=== PATIENT | male | born 1950 | race Caucasian/White ===

== ENCOUNTER → 2016-11-06 | Outpatient (CLI) | payer MEDICARE, OTHER | LOC: LAB.O 11:55 | PROVIDERS: ATTEND Internal Medicine Nephrology | DX: N18.4 Chronic kidney disease, stage 4 (severe) (principal) ==

== ENCOUNTER → 2017-06-21 | Outpatient (CLI) | payer MEDICARE, OTHER | END | disposition home or self-care (01) | LOC: LAB.O 11:08 | PROVIDERS: ATTEND Internal Medicine Nephrology | DX: N18.4 Chronic kidney disease, stage 4 (severe) (principal) ==

== ENCOUNTER → 2017-09-28 | Outpatient (CLI) | payer MEDICARE, OTHER | LOC: GMAB 10:40 | PROVIDERS: ATTEND Family Medicine | DX: R53.82 Chronic fatigue, unspecified (principal); Z12.5 Encounter for screening for malignant neoplasm of prostate | CPT/HCPCS: 84403; G0103 ==

== ENCOUNTER → 2018-08-06 | Outpatient (CLI) | payer MEDICARE, OTHER | LOC: LAB.O 12:53 | PROVIDERS: ATTEND Internal Medicine Nephrology | DX: N18.4 Chronic kidney disease, stage 4 (severe) (principal) ==

== ENCOUNTER → 2018-11-18 | Outpatient (CLI) | payer MEDICARE, OTHER | LOC: GMAE 10:26 | PROVIDERS: ATTEND Family Medicine | DX: I10 Essential (primary) hypertension (principal); Z12.5 Encounter for screening for malignant neoplasm of prostate | CPT/HCPCS: 84443; G0103 ==

== ENCOUNTER → 2018-12-26 | Outpatient (CLI) | payer MEDICARE, OTHER ==
--- NOTE | 2018-12-26 14:54 | US ---
EXAM DESCRIPTION: Aorta: Ultrasound. CLINICAL HISTORY: ABDOMINAL AORTIC ANEURYSM WITHOUT RUPTURE COMPARISON: No prior imaging of aorta available. TECHNIQUE: Transcutaneous scanning: Two-dimensional and Doppler modes. FINDINGS: Abdominal aorta diameter - Proximal: 3.0 x 2.8 cm. Mid: 2.0 x 2.0 cm. Mid-Distal: 3.1 x 3.1 cm., 4.6 cm length. Distal abdominal aorta 3.9 x 3.5 cm Common Iliac diameter - Right: 9.3 mm. Left: 20 mm. Other: Atherosclerotic calcification and intimal thickening throughout the abdominal aorta.. IMPRESSION: 1. Distal abdominal aorta diameter 3.9 cm. [facility] Best Practice recommendations: Recommend annual follow-up. Reference: J Vasc Surg 2009 Oct;50(4 Suppl):S2-49. 2. Left common iliac diameter 20 mm representing an aneurysm (upper normal limit is 14 mm). Electronically signed by: Brandt Nelson MD 12/26/2018 2:50 PM [facility]
== END ==
LOC: US 09:00
PROVIDERS: ATTEND Family Medicine
DX: I71.4 Abdominal aortic aneurysm, without rupture (principal)

== ENCOUNTER → 2019-02-06 | Outpatient (CLI) | payer MEDICARE, OTHER | LOC: GMAE 10:55 | PROVIDERS: ATTEND Family Medicine | DX: R94.8 Abnormal results of function studies of other organs and systems (principal); E29.1 Testicular hypofunction ==

== ENCOUNTER → 2019-03-25 | Outpatient (CLI) | payer MEDICARE, OTHER ==
--- NOTE | 2019-03-25 15:04 | CT ---
EXAM DESCRIPTION: Lower Extremity CLINICAL HISTORY: OSTEOARTHRITIS RT KNEE COMPARISON: None Available. TECHNIQUE: Extremity CT of the right knee is performed with thin-section axial imaging. MPRs are created and reviewed as well. FINDINGS: Advanced patellofemoral and medial compartment osteoarthritis with joint space narrowing and early marginal osteophyte formation. Lesser joint space narrowing lateral compartment. Lateral subluxation and lateral tilting of the patella with shallow/insufficient trochlear groove. Moderate knee joint effusion No fracture IMPRESSION: Advanced osteoarthritis of the medial and patellofemoral compartments. Lateral tracking of the patella Joint effusion This exam was performed according to our departmental dose-optimization program, which includes automated exposure control, adjustment of the mA and/or kV according to patient size and/or use of iterative reconstruction technique. Electronically signed by: Dat Iglesias MD 03/25/2019 3:02 PM CDT
== END ==
LOC: MRI 09:53 → CT 10:00
PROVIDERS: ATTEND Family Medicine
DX: M17.11 Unilateral primary osteoarthritis, right knee (principal); S83.011A Lateral subluxation of right patella, initial encounter

== ENCOUNTER → 2019-04-21 | Outpatient (CLI) | payer MEDICARE, OTHER ==
--- NOTE | 2019-04-21 08:14 | RAD ---
EXAM DESCRIPTION: Pelvis CLINICAL HISTORY: 68 years Male, M25.561, M25.551 COMPARISON: None. FINDINGS: Bones of the pelvic ring appear intact. Intact hips and proximal femurs. Moderate degenerative changes in the lower L-spine. Surgical clips in the left paraspinous region. Calcified vessels in the pelvis with multiple pelvic calcifications thought to be phleboliths. Bowel gas obscures the renal silhouettes. Pelvic bones are unremarkable except for degenerative changes at pubic symphysis. IMPRESSION: No acute process. Electronically signed by: Carlos Mcdowell MD 04/21/2019 8:12 AM CDT
--- NOTE | 2019-04-21 08:17 | RAD ---
EXAM DESCRIPTION: Knee,Right Complete CLINICAL HISTORY: 68 years, Male, M25.561, M25.551 COMPARISON: None TECHNIQUE: Three views of the right knee FINDINGS: No fracture or dislocation. Bones appear normally mineralized with normal trabecular pattern. Narrowed appearance of medial compartment on the oblique and frontal views with mild medial joint line spurring and mild spurring of the tibial spines. Lateral view shows normal position of the patella. Positive posterior vascular calcification. Minimal posterior patellar spurring with mild degenerative posterior surface irregularity. Positive small suprapatellar knee joint effusion. Normal contour of quadriceps and patellar tendons. No abnormal patellar tilt or subluxation on patellar sunrise view. Posterior patellar surface irregularity with mild marginal spurring. IMPRESSION: Degenerative changes as described. Electronically signed by: Carlos Mcdowell MD 04/21/2019 8:15 AM CDT
== END ==
LOC: RAD 07:41
PROVIDERS: ATTEND Orthopaedic Surgery
DX: M17.11 Unilateral primary osteoarthritis, right knee (principal); M25.551 Pain in right hip

== ENCOUNTER → 2019-08-25 | Outpatient (CLI) | payer MEDICARE, OTHER | LOC: LAB.O 11:23 | PROVIDERS: ATTEND Orthopaedic Surgery | DX: Z01.818 Encounter for other preprocedural examination (principal) ==

== ENCOUNTER 2019-10-07 06:10 | Inpatient (IN) | payer MEDICARE, OTHER ==
[~2019-10-07 06:10] MED LIST: LACTATED RINGERS 1,000 ML ONE; SODIUM CHL 0.9% 100ML MINI-BAG 100 ML IVPB ONE; SODIUM CHLORIDE 0.9% 100ML 100 ML IVPB ONE; SODIUM CHLORIDE 0.9% 250ML 250 ML ONE; TRANEXAMIC ACID 1,000 MG/10 ML VIAL ONE; VANCOMYCIN HCL INJ 1,000 MG VIAL IVPB ONE; ceFAZolin SODIUM 1 GM VIAL ONE
[2019-10-07] MEDS ORDERED: MIDAZOLAM INJ 5 MG/5 ML VIAL ONE (06:32)
[2019-10-07] MEDS ORDERED: HYDROmorphone HCL INJ 2 MG/ML VIAL ONE (06:32)
[2019-10-07] MEDS ORDERED: BUPIVACAINE 0.5% 30 ML VIAL INJ ONE ×2 (06:34→06:53)
[2019-10-07] MEDS ORDERED: VANCOMYCIN HCL INJ 1,000 MG VIAL IVPB ONE ×5 (06:34→19:38)
[2019-10-07] MEDS ORDERED: ceFAZolin SODIUM 1 GM VIAL ONE ×3 (06:34→19:38)
[2019-10-07] MEDS ORDERED: BUPIVACAINE LIPOSOME 13.3 MG/ML VIAL INJ ONE ×3 (06:34→06:53)
[2019-10-07] MEDS ORDERED: ceFAZolin SODIUM 1 GM VIAL IRRIG ONE ×2 (06:53→08:40)
[2019-10-07] MEDS ORDERED: PROMETHAZINE HCL INJ 25 MG in SODIUM CHLORIDE 0.9% 50ML 50 ML IVPB PRN (09:18)
[2019-10-07] MEDS ORDERED: NALOXONE HCL INJ 0.4 MG/ML VIAL IV PRN (09:18)
[2019-10-07] MEDS ORDERED: BENZOCAINE-MENTH LOZ (CEPACOL) 1 EA LOZ MT PRN (09:18)
[2019-10-07] MEDS ORDERED: BISACODYL SUPPOSITORY 10 MG PR PRN (09:18)
[2019-10-07] MEDS ORDERED: MORPHINE SULFATE INJ 10 MG/ML VIAL IM PRN (09:18)
[2019-10-07] MEDS ORDERED: HYDROcodone 5MG/APAP 325MG 1 EA TAB PO PRN (09:18)
[2019-10-07] MEDS ORDERED: ACETAMINOPHEN 500 MG TAB PO PRN (09:18)
[2019-10-07] MEDS ORDERED: ACETAMINOPHEN 325 MG TAB PO PRN (09:18)
[2019-10-07] MEDS ORDERED: MAGNESIUM HYDROXIDE 30 ML UD PO PRN (09:18)
[2019-10-07] MEDS ORDERED: TRANEXAMIC ACID INJ 1,000 MG in SODIUM CHLORIDE 0.9% 100ML 100 ML IVPB ONE (09:18)
[2019-10-07] MEDS ORDERED: MORPHINE SULFATE INJ 10 MG/ML VIAL IV PRN (09:18)
[2019-10-07] MEDS ORDERED: ZOLPIDEM TARTRATE 5 MG TAB PO PRN (09:18)
[2019-10-07] MEDS ORDERED: ALUMINUM & MAGNESIUM HYDROXIDE 30 ML UD PO PRN (09:18)
[2019-10-07] MEDS ORDERED: TEMAZEPAM 15 MG CAP PO PRN (09:18)
[2019-10-07] MEDS ORDERED: SODIUM CHLORIDE 0.9% (FLUSH) 10 ML SYG IV PRN (09:18)
[2019-10-07] MEDS ORDERED: PROMETHAZINE HCL INJ 12.5 MG in SODIUM CHLORIDE 0.9% 50ML 50 ML IVPB PRN (09:18)
[2019-10-07] MEDS ORDERED: IV SET AND CAP CHANGE INJ INJ SCH (09:30)
[2019-10-07] MEDS ORDERED: MORPHINE PCA 1 MG/ML 100 ML BAG IVPB SCH (09:30)
[2019-10-07] MEDS ORDERED: LACTATED RINGERS 1,000 ML ONE (10:04)
--- NOTE | 2019-10-07 10:42 | OP ---
DATE OF PROCEDURE: 10/07/19 PREOPERATIVE DIAGNOSIS: 1. Right knee osteoarthritis. POSTOPERATIVE DIAGNOSIS: 1. Right knee osteoarthritis. PROCEDURE: 1. Total knee arthroplasty. SURGEON: Shorty Ho MD. RESEARCH LAB ASSISTANT: Brandt Amado CST, SA-C. ANESTHESIA: General anesthesia. COMPLICATIONS: None. FINDINGS: Severe osteoarthritis. INDICATION: Mr. Souza has a history of severe pain for which he has been undergoing treatment. Unfortunately, Mr. Souza's pain has been refractory to conservative measures. Because of the refractory nature of his pain, he has become limited and has requested knee replacement. After discussing the risks, benefits and alternatives to that, the patient has given informed consent for that. PROCEDURE: The patient was brought to the Operating Room and placed in supine position. General anesthesia was induced and the patient's leg was sterilely prepped and draped. Following prepping and draping, the distal femur was exposed and using an intramedullary guide, the distal femoral cut was made. The appropriate sized cutting block was measured, pinned into place, and the anterior, posterior, and chamfer cuts were made. The ACL was transected and the tibia was subluxed. Both the medial and lateral menisci were removed. An intramedullary guide was used to make the proximal tibial cut. The appropriate sized base plate was placed and a trial polyethylene was placed. The trial femur was placed, the knee was reduced, and the knee was taken through a range of motion. The knee was stable in anterior, posterior, varus and valgus stress. The patella tracked anatomically without evidence of subluxation or dislocation. After trialing, the trial components were removed and the bony surfaces were thoroughly irrigated with saline. Following irrigation, the surfaces were dried and the final components were cemented into place. The excess cement was removed and the remaining cement was allowed to cure. The knee was again taken through a range of motion to confirm stability. The wound was then irrigated with saline and closure was performed using PDS to approximate the arthrotomy followed by closure of the subcutaneous tissues with a combination of running and interrupted Monocryl sutures. Sterile dressing was placed. The patient was awoken from anesthesia and taken to Recovery. COMPONENTS: [place] Triathlon knee, size 5 femur, size 5 tibia, 9 mm insert. POSTOPERATIVE PLAN: The patient will be weight-bearing as tolerated on postoperative day 1. #[id number] [facility]
--- NOTE | 2019-10-07 11:06 | RAD ---
EXAM DESCRIPTION: Knee,Right 1 or 2 Views CLINICAL HISTORY: 69 years Male, TKA COMPARISON: None. Findings: Location: Right knee Recent right total knee arthroplasty. No evidence of hardware complication. No acute fracture or dislocation. Expected postsurgical appearance of the overlying soft tissues. IMPRESSION: Recent right total knee arthroplasty. No evidence of hardware complication. Electronically signed by: Sandro Pitts MD 10/07/2019 11:04 AM [facility]
[2019-10-07] MEDS: ONDANSETRON INJ 4 MG/2 ML VIAL IV PRN (12:05)
[2019-10-07] MEDS: DEX 5% W/NACL 0.45% 1000ML 1,000 ML IVS PRN (12:08)
[2019-10-07] MEDS ORDERED: EPINEPHrine HCL AMP 1 MG/ML AMP IVPB ONE (13:00)
[2019-10-07] MEDS ORDERED: ePHEDrine SULF 50 MG/ML IV ONE (13:00)
[2019-10-07] MEDS ORDERED: raNITIdine HCL INJ 25 MG/ML VIAL IV ONE (13:00)
[2019-10-07] MEDS ORDERED: MAGNESIUM SULFATE INJ 1 GM/2 ML VIAL IVPB ONE (13:00)
[2019-10-07] MEDS ORDERED: DEXAMETHASONE INJ 10 MG/ML VIAL IV ONE (13:00)
[2019-10-07] MEDS ORDERED: SODIUM CHLORIDE 0.9% 50 ML VIAL INJ ONE (13:00)
[2019-10-07] MEDS ORDERED: PROPOFOL 200 MG/20 ML VIAL IV ONE (13:00)
--- NOTE | 2019-10-07 13:30 | RAD ---
EXAM DESCRIPTION: Fluoroscopy Up to 1Hr CLINICAL HISTORY: 69 years Male, TKA RIGH COMPARISON: None. Findings: Location: Right knee Recent right total knee arthroplasty. No evidence of hardware complication. No acute fracture or dislocation. Expected postsurgical appearance of the overlying soft tissues. Dose: 0.25 mGy Fluoroscopy time: 3.3 seconds IMPRESSION: Recent right total knee arthroplasty. No evidence of hardware complication. Electronically signed by: Sandro Pitts MD 10/07/2019 1:28 PM [facility]
[2019-10-07] MEDS ORDERED: SODIUM CHLORIDE 0.9% 100ML 100 ML IVPB ONE ×2 (15:48→19:38)
[2019-10-07] MEDS: ceFAZolin SODIUM 2 GM in SODIUM CHLORIDE 0.9% 100ML 100 ML IVPB SCH (15:53)
[2019-10-07] MEDS ORDERED: SODIUM CHLORIDE 0.9% 250ML 250 ML ONE ×2 (16:33→19:37)
[2019-10-07] MEDS: CELECOXIB 100 MG CAP PO SCH (17:46)
[2019-10-07] MEDS ORDERED: PROMETHAZINE HCL INJ 25 MG/ML VIAL ONE (17:47)
[2019-10-07] MEDS ORDERED: SODIUM CHLORIDE 0.9% 50ML 50 ML ONE (17:48)
[2019-10-07] MEDS: VANCOMYCIN HCL INJ 1,000 MG in SODIUM CHLORIDE 0.9% 250ML 250 ML IVPB SCH (17:50)
[2019-10-07] MEDS ORDERED: ENOXAPARIN SODIUM 30 MG/0.3 ML SYG SUBCU ONE (19:37)
[2019-10-07] MEDS: DOCUSATE CALCIUM 240 MG CAP PO SCH (20:18)
[2019-10-07] MEDS: ENOXAPARIN SODIUM 30 MG/0.3 ML SYG SUBCU SCH (23:29)
[2019-10-08] MEDS: VANCOMYCIN HCL INJ 1,000 MG in SODIUM CHLORIDE 0.9% 250ML 250 ML IVPB SCH (06:13)
[2019-10-08] MEDS: CELECOXIB 100 MG CAP PO SCH ×2 (07:46→16:33)
[2019-10-08] MEDS: CYCLOBENZAPRINE HCL 10 MG TAB PO PRN ×2 (07:46→19:44)
[2019-10-08] MEDS: ONDANSETRON INJ 4 MG/2 ML VIAL IV PRN ×2 (07:46→11:50)
[2019-10-08] MEDS ORDERED: SODIUM CHLORIDE 0.9% 100ML 100 ML IVPB ONE (08:06)
[2019-10-08] MEDS ORDERED: ceFAZolin SODIUM 1 GM VIAL ONE (08:06)
[2019-10-08] MEDS: MAGNESIUM OXIDE 400 MG TAB PO SCH (08:30)
[2019-10-08] MEDS: ceFAZolin SODIUM 2 GM in SODIUM CHLORIDE 0.9% 100ML 100 ML IVPB SCH ×3 (08:31)
--- NOTE | 2019-10-08 09:38 | CONS ---
REASON FOR CONSULTATION: Medical management, total right knee arthroplasty. SUPERVISING PHYSICIAN: GISELA TREJO MD HISTORY OF PRESENT ILLNESS: Mr. 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 He has had multiple attempts as an outpatient with conservative treatment measures with Dr. Ho but failed to receive any significant symptom relief and has requested an elective total knee replacement. He will be admitted for an elective total right knee arthroplasty. He had no intraoperative complications and is in stable condition. PAST MEDICAL HISTORY: 1. History of tension headaches. 2. Hyperlipidemia. 3. Hypertension. 4. Coronary artery disease with previous stent placement. 5. Abdominal aortic aneurysm measuring 3.9 cm in December [address] Trejo. 6. Left common iliac aneurysm, again measuring [address] Trejo. 7. Hepatitis C diagnosed in 2008. 8. Previous cerebrovascular accident in 2010. PAST SURGICAL HISTORY: 1. Cholecystectomy. 2. Sinus surgery. 3. Coronary artery bypass graft x4 vessels in 2008. 4 Coronary artery stent placement in 2001. 5. Bilateral hernia repair. 6. Pacemaker implantation in 2008. HOME MEDICATIONS: 1. Metoprolol 25 mg daily. 2. Losartan 100 mg daily. 3. Gabapentin 600 mg b.i.d. 4. Lasix 20 mg daily. 5. Plavix 75 mg daily. 6. Lipitor 20 mg daily. 7. Aspirin 81 mg daily. 8. Amlodipine 10 mg daily. 9. Allopurinol 300 mg daily. ALLERGIES: NO KNOWN DRUG ALLERGIES. FAMILY HISTORY: Father at age 85 due to kidney problems. Mother had history of Alzheimer's disease. 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 He is . He lives in [place]. He has a history of cigarette smoking but quit in 2007, approximately had half case per week and does not drink or use illicit drugs. REVIEW OF SYSTEMS: CONSTITUTIONAL: Negative for chills, fever, general malaise. HEENT: Negative for headaches, vision changes, sore throats, nasal congestion, earaches. RESPIRATORY: Denies shortness of breath, coughing, wheezing. CARDIOVASCULAR: Denies any palpitations, syncopal episodes, chest pain. ABDOMEN: Denies nausea, vomiting, diarrhea, constipation or any other abdominal pain. GENITOURINARY: Denies dysuria, hematuria, polyuria. MUSCULOSKELETAL: As noted in history of present illness. SKIN: Denies any lesions, rashes, moles. HEMATOLOGIC: Denies any easy bruising, bleeding or transfusion reaction. PHYSICAL EXAMINATION: VITAL SIGNS: Temperature 97.2, pulse 58, blood pressure 136/79, respirations 18, oxygen saturation 97% on 2 liter nasal cannula. GENERAL: The patient is resting comfortably, appears to be in no acute distress. He is alert. HEENT: Tympanic membranes clear bilaterally. Oropharynx is pink, moist without any lesions. NECK: Supple, nontender with full range of motion. No jugular venous distention noted. CHEST: Clear to auscultation bilaterally without rhonchi, rales, or wheezes. CARDIOVASCULAR: Regular rate and rhythm without any appreciable murmurs, gallops, or rubs. ABDOMEN: Soft, nontender. Positive bowel sounds. EXTREMITIES: There is no cyanosis, clubbing or edema. NEUROLOGIC: The patient is alert and oriented times three. Cranial nerves II- XII are grossly intact. Facial features are symmetrical. Extraocular movements are within normal limits. MUSCULOSKELETAL: Again, no cyanosis, clubbing, or edema but distally pulses are strong on the right with capillary refill brisk and right knee had a bulky dressing placed. Postoperative labs are pending. ASSESSMENT: 1. Severe osteoarthritis of right knee requiring total knee arthroplasty for symptom control, postoperative day #0, performed by Dr. Shorty Ho. 2. History of tension headaches. 3. Hypertension. 4. Coronary artery disease with 3 stent placements. 5. Previous cerebrovascular accident in 2010. 6. Hepatitis C. 7. History of left common iliac aneurysm followed by Dr. Trejo. 8. Abdominal aortic aneurysm 3.9 cm in December [address] Trejo. PLAN: We will follow patient as he continues with his rehabilitation and physical therapy efforts. I did discuss with him his plans for discharge. He is interested in trying to do [facility] because he has been to [facility] at some point in the past. We will resume his home medications as soon as those are updated and verified. We will defer further surgical management to Dr. Ho. He will be on DVT prophylaxis per protocol. Until we can transition him to outpatient management, we will continue to monitor and treat as needed. #[id number] [facility]
[2019-10-08] MEDS: ENOXAPARIN SODIUM 30 MG/0.3 ML SYG SUBCU SCH ×2 (10:57→22:33)
[2019-10-08] MEDS: traMADol HCL 50 MG TAB PO PRN ×2 (11:54→16:32)
[2019-10-08] MEDS: HYDROcodone 10MG/APAP 325MG 1 EA TAB PO PRN ×2 (13:54→19:44)
[2019-10-08] MEDS: DEX 5% W/NACL 0.45% 1000ML 1,000 ML IVS PRN (19:44)
[2019-10-08] MEDS: DOCUSATE CALCIUM 240 MG CAP PO SCH (20:27)
[2019-10-08] MEDS: GABAPENTIN 300 MG CAP PO SCH (20:27)
[2019-10-09] MEDS: HYDROcodone 10MG/APAP 325MG 1 EA TAB PO PRN ×2 (05:03→17:55)
[2019-10-09] MEDS ORDERED: LOSARTAN POTASSIUM 100 MG TAB ONE (07:01)
[2019-10-09] MEDS ORDERED: ASPIRIN (ENTERIC COATED) 81 MG TAB PO ONE (07:02)
[2019-10-09] MEDS: traMADol HCL 50 MG TAB PO PRN (07:10)
[2019-10-09] MEDS: CELECOXIB 100 MG CAP PO SCH ×2 (07:10→17:56)
[2019-10-09] MEDS: CYCLOBENZAPRINE HCL 10 MG TAB PO PRN (07:10)
[2019-10-09] MEDS: ONDANSETRON INJ 4 MG/2 ML VIAL IV PRN ×2 (07:39→11:04)
--- NOTE | 2019-10-09 07:53 | PN ---
SUPERVISING PHYSICIAN: Elijah Matthews MD DATE: 10/08/19 SUBJECTIVE: The patient is lying in bed asleep. He awakens easily. He complains of pain, but it is expected pain although he feels like some of his medications could be corrected to help with the pain. I have discussed options and will order accordingly. Otherwise, he denies shortness of breath, chest pain, nausea, vomiting and diarrhea. OBJECTIVE: VITAL SIGNS: Temperature 97.5. Heart rate 82. Blood pressure 145/81. Respiratory rate 15. O2 saturation 95% on room air. RESPIRATORY: Essentially clear to auscultation bilaterally. CARDIAC: Regular rate and rhythm. GASTROINTESTINAL: Abdomen is soft, nondistended, nontender. Bowel sounds are positive. EXTREMITIES: There is a dressing to his right knee that is dry and intact. Bilateral pedal pulses are palpable at +2. NEUROLOGIC: Awake, alert and oriented times three. LABORATORY: His followup hemoglobin is 11.9 and hematocrit 36.1. All other labs and films have been reviewed via the EMR. ASSESSMENT: 1. Severe osteoarthritis of right knee requiring total knee arthroplasty for symptom control, performed by Dr. Shorty Ho, orthopedic surgeon, postoperative day #1. 2. History of tension headaches. 3. Hypertension. 4. Coronary artery disease with 3 stents. 5. Previous cerebrovascular accident in 2010. 6. Hepatitis C. 7. History of left common iliac aneurysm followed by Dr. Matthews. 8. Abdominal aortic aneurysm, 3.9 cm in December 2018, followed by Dr. Matthews. PLAN: We will continue present supportive care including his physical therapy for strengthening and conditioning. Orthopedic issues will be per Dr. Shorty Ho, orthopedic surgeon. I have adjusted some of his pain medications. Hopefully that will facilitate his pain control. It is anticipated that discharge will be tomorrow or the next day. He will do outpatient physical therapy at the [facility]. Until then, we will continue to monitor the patient closely and follow as needed. [facility][id number] [facility]
[2019-10-09] MEDS: GABAPENTIN 300 MG CAP PO SCH (08:17)
[2019-10-09] MEDS: MAGNESIUM OXIDE 400 MG TAB PO SCH (08:18)
[2019-10-09] MEDS ORDERED: ATORVASTATIN 20 MG TAB PO SCH (09:00)
[2019-10-09] MEDS ORDERED: ASPIRIN (CHEWABLE) 81 MG TAB PO SCH (09:00)
[2019-10-09] MEDS ORDERED: METOPROLOL SUCCINATE XL 25 MG TAB PO SCH (09:00)
[2019-10-09] MEDS ORDERED: amLODIPine BESYLATE 5 MG TAB PO SCH (09:00)
[2019-10-09] MEDS ORDERED: ALLOPURINOL 300 MG TAB PO SCH (09:00)
[2019-10-09] MEDS ORDERED: SODIUM CHLORIDE 0.9% (FLUSH) 10 ML SYG IV SCH (09:00)
[2019-10-09] MEDS ORDERED: LOSARTAN POTASSIUM 100 MG TAB PO SCH (09:00)
[2019-10-09] MEDS ORDERED: FUROSEMIDE 40 MG TAB PO SCH (09:00)
[2019-10-09 09:19] VITALS: O2SAT 98
[2019-10-09] MEDS: ENOXAPARIN SODIUM 30 MG/0.3 ML SYG SUBCU SCH (11:04)
[2019-10-09 17:34] VITALS: BP 139/79; TEMP 97.6
--- NOTE | 2019-10-10 11:14 | DS ---
SUPERVISING PHYSICIAN: Elijah Matthews MD DISCHARGE DIAGNOSIS: 1. Severe osteoarthritis of right knee requiring total knee arthroplasty for symptom control, performed by Dr. Shorty Ho, orthopedic surgeon, postoperative day #2. 2. History of tension headaches. 3. Hypertension. 4. Coronary artery disease with 3 stents. 5. Previous cerebrovascular accident in 2010. 6. Hepatitis C. 7. History of left common iliac aneurysm followed by Dr. Matthews. 8. Abdominal aortic aneurysm, 3.9 cm in December 2018, followed by Dr. Matthews. 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 He has had multiple attempts as an outpatient with conservative treatment measures, but failed to gain any significant symptom relief and has requested an elective total knee replacement to be performed by Dr. Shorty Ho, orthopedic surgeon. He was admitted to the hospital on the morning of his surgery. He had no problems intraoperatively and he was admitted to the Medical/Surgical Floor in stable condition. HOSPITAL COURSE: He had no problems postoperatively. He continued with his physical therapy for strengthening and conditioning. He did have some dizziness prior to his discharge, but he felt it was due to pain medications on an empty stomach. This afternoon, he proceed through his physical therapy without any problem and he will be discharged home today in stable condition. LABORATORY: Initial hemoglobin was 13.8 and hematocrit 41.7. The day after his surgery, it was hemoglobin 11.9 and continue the 36.1. His urine drug screen was positive for cannabinoids. X-rays are per the electronic medical record. DISCHARGE PLAN: He will be discharged home in stable condition. He will continue with physical therapy at the [facility]. He is to resume his usual diet and his activity is as per physical therapy. He has an appointment with Dr. Shorty Ho on 10/23/19 at 9:15 AM. In addition to his routine medications, he has hydrocodone, cyclobenzaprine and 10 days of Xarelto. He is to return to the hospital or followup with Dr. Ho for any problems or complications. DISCHARGE MEDICATIONS: 1. Amlodipine. 2. Aspirin. 3. Allopurinol. 4. Losartan. 5. Furosemide. 6. Gabapentin. 7. Plavix. 8. Metoprolol. 9. Atorvastatin. 10. Cyclobenzaprine. 11. Hydrocodone. 12. Xarelto. [facility][id number] [facility]
[2019-10-10] MEDS ORDERED: BISACODYL SUPPOSITORY 10 MG PR ONE (21:00)
[2019-10-10] MEDS ORDERED: MAGNESIUM HYDROXIDE 30 ML UD PO ONE (21:00)
== END 2019-10-09 18:00 | disposition home or self-care (01) | DRG 470 ==
LOC: AMB 06:10 → MS 10:05
PROVIDERS: ADMIT Orthopaedic Surgery; ATTEND Nurse Practitioner Acute Care
PROC: 0SRC0J9 Replacement of Right Knee Joint with Synthetic Substitute, Cemented, Open Approach (ICD-10-PCS; principal; 2019-10-07 06:53)
DX: M17.11 Unilateral primary osteoarthritis, right knee (principal); E78.5 Hyperlipidemia, unspecified; I10 Essential (primary) hypertension; I25.10 Atherosclerotic heart disease of native coronary artery without angina pectoris; I71.4 Abdominal aortic aneurysm, without rupture; B19.20 Unspecified viral hepatitis C without hepatic coma; I72.3 Aneurysm of iliac artery; Z86.73 Personal history of transient ischemic attack (TIA), and cerebral infarction without residual deficits; Z95.1 Presence of aortocoronary bypass graft; Z95.5 Presence of coronary angioplasty implant and graft; Z95.0 Presence of cardiac pacemaker; Z79.02 Long term (current) use of antithrombotics/antiplatelets; Z87.891 Personal history of nicotine dependence; Z79.82 Long term (current) use of aspirin; Z79.899 Other long term (current) drug therapy

== ENCOUNTER 2019-10-12 11:08 | Emergency (ER) | payer MEDICARE, OTHER ==
[2019-10-12] MEDS ORDERED: SODIUM CHLORIDE 0.9% (FLUSH) 10 ML SYG IV PRN (11:17)
--- NOTE | 2019-10-12 11:24 | ED.PDOC ---
History of Present Illness - General Chief Complaint: Neuro Symptoms/Deficits Stated Complaint: Difficulty forming sentences Time Seen by Provider: 10/12/19 11:10 Source: patient, RN notes reviewed, Vital Signs reviewed, old records, other - Son Exam Limitations: no limitations - History of Present Illness Initial Comments: Pt is a 69 yo male with PMH of HTN and recent right knee surgery 1 week ago who presents for exprressive aphasia that is improved. Son states he was with him last night at 1800 and he was speaking normally. He went to see him this morning at 10:45 and noticed he was having trouble speaking and brought him to ED. Patient states he did not notice deficit until he attempted to speak to son this morning and felt he knew what he wanted to say, but could not form the words. Son feels his speech is improved now from earlier this morning. Pt denies DOMINGUEZ, dizziness, CP, SOB. Reports right knee pain which is unchanged from recent surgery. Pt is taking Xarelto, Plavix and aspirin. Allergies/Adverse Reactions: Allergies NO KNOWN ALLERGY Allergy (Unverified 06/25/14 15:21) Home Medications: Ambulatory Orders RX: Allopurinol 300 mg PO DAILY 09/30/19 RX: Amlodipine Besylate 10 mg PO DAILY 09/30/19 RX: Aspirin [Aspirin Childrens] 81 mg PO DAILY 09/30/19 RX: Atorvastatin Calcium [Lipitor] 20 mg PO DAILY 09/30/19 RX: Clopidogrel Bisulfate 75 mg PO DAILY 09/30/19 RX: Furosemide 20 mg PO DAILY 09/30/19 RX: Gabapentin 600 mg PO BID 09/30/19 RX: Losartan Potassium 100 mg PO DAILY 09/30/19 RX: Metoprolol Succinate [Metoprolol Succinate ER] 25 mg PO DAILY 09/30/19 RX: Cyclobenzaprine HCl [Flexeril] 10 mg PO Q8H PRN #30 tab 10/09/19 RX: HYDROcodone 10MG/APAP 325MG [[place] 10/325] 1 ea PO Q4H PRN tab 10/09/19 Rivaroxaban [Xarelto] 10 mg PO DAILY #10 tab 10/09/19 Review of Systems - Review of Systems Constitutional: Denies: chills, fever, weakness EENTM: Denies: blurred vision, double vision Respiratory: Denies: cough, short of breath, wheezing Cardiology: Denies: chest pain, edema, palpitations, syncope Gastrointestinal/Abdominal: Denies: abdominal pain, diarrhea, nausea, vomiting Genitourinary: States: no symptoms reported Musculoskeletal: States: other - right knee pain siince surgery. Denies: back pain, muscle pain Skin: States: no symptoms reported Neurological: States: other - expressive aphasia. Denies: anxiety, headache, paresthesia All other Systems: Reviewed and Negative Past Medical History (General) - Patient Medical History Hx Seizures: No Hx Stroke: Yes - brain stem CVA 2010 Hx Asthma: No Hx of COPD: No Hx Congestive Heart Failure: No Hx Pacemaker: Yes Hx Hypertension: Yes Hx Diabetes: No Hx Renal Disease: Yes - Stage 3 Hx MRSA: No - Vaccination History Hx Influenza Vaccination: Yes - 2012 - Social History Hx Tobacco Use: No Hx Alcohol Use: No Hx Substance Use: No Hx Physical Abuse: No Hx Emotional Abuse: No Family Medical History - Family History Father Hx Cardiac Disease: Yes Hx Family;Other: Hx of kidney failure Physical Exam - Physical Exam General Appearance: Alert, Comfortable, No apparent distress Eye Exam: bilateral normal - PERRL ENT Exam: other - MMM, no oropharyngeal erythema Neck: non-tender, full range of motion, supple, trachea midline Respiratory: chest non-tender, lungs clear, normal breath sounds, no respiratory distress Cardiovascular/Chest: normal peripheral pulses, regular rate, rhythm, no edema, no murmur Gastrointestinal/Abdominal: non tender, soft Extremities Exam: other - Mild TTP right knee Mental Status: alert, oriented x 3, other - CN grossly intact. strength 5/5 in all extremities. speech is clear and fluent. able to name simple objects. NIHSS is 0 Motor/Sensory: no motor deficit, no sensory deficit Skin Exam: normal color, warm/dry Progress - Progress Progress: 10/12/19 11:27 Pt presents with expressive aphasia noticed by son at 10:45 this morning. unknown last well time. Speech has significantly improved per patient and son. Pt nont candidate for tPA due to improvement of symptoms and NIHSS of 0. 10/12/19 13:43 Pt continues to have fluent speech and no neuro deficits. CT head negative. Appears to have had TIA causing expressive aphasia that has resolved. Hgb has dropped from 11.9 on 10/08/19 to 7.5 today. Denies bloody, black or tarry stools. RLE compartments are soft and does not appear to be any source of blood loss. Will get stool guiac. 10/12/19 13:54 Rectal exam chaperoned by DEIDRE Jones. Has no hemorrhoids. There is brown stool that is Guiac negative. 10/12/19 14:00 D/W Davide Floyd, hospitalist. Pt has pacemaker and unable to get MRI. He will check to see if we would be able to get Echo at this facility tomorrow and call back 10/12/19 14:05 Davide Floyd recommends transfer for higher level of care and Neuro workup. 10/12/19 14:15 D/W [facility] Transfer Line and Dr. Castro who accepts transfer. Pt informed of transfer for further TIA, neuro workup and agrees. 10/12/19 14:23 Dr. Ho, Ortho, at bedside. - Results/Orders Results/Orders: CT BRAIN IMPRESSION: 1. Chronic right thalamic lacunar infarct. 2. No other intracranial findings. 3. If further imaging evaluation of expressive aphasia is desired recommend diffusion MRI CXR Technique: Portable AP chest x-ray. Comparison: December 04, 2011. Clinical history: Possible stroke. Heart size: Normal. Left transvenous and epicardial pacemaker. No pulmonary edema Lungs: No acute consolidation. Pleura: No pleural effusion. No pneumothorax. Mediastinum and loida: Unremarkable. Skeletal: Unremarkable. Support tubings: None. Impression: 1. No active disease in the chest. 10/12/19 11:30 EKG STAT Laboratory Results - last 24 hr 10/12/19 10/12/19 10/12/19 12:30 12:31 12:31 WBC 14.5 H RBC 2.38 L Hgb 7.5 L* Hct 22.8 L MCV 95.8 H MCH 31.6 H MCHC 33.0 RDW 14.9 H Plt Count 264 MPV 8.0 Absolute Neuts (auto) 11.90 H Absolute Lymphs (auto) 1.60 Absolute Monos (auto) 1.00 H Absolute Eos (auto) 0.00 Absolute Basos (auto) 0.00 Neutrophils % 82.0 H Lymphocytes % 10.9 L Monocytes % 6.5 Eosinophils % 0.3 L Basophils % 0.3 PT INR PTT (SP) Sodium 139 Potassium 3.4 L Chloride 105 Carbon Dioxide 21 Anion Gap 16.4 BUN 86 H Creatinine 1.78 H BUN/Creatinine Ratio 48.3 H POC Glucose 155 H Random Glucose 137 H Serum Osmolality 305.9 H Calcium 8.6 Total Bilirubin 0.5 AST 42 ALT 25 Alkaline Phosphatase 82 Creatine Kinase 82 CK-MB (CK-2) 3.9 CK-MB (CK-2) % Not Reportable Troponin I 0.04 Serum Total Protein 5.8 L Albumin 3.0 L Globulin 2.8 Albumin/Globulin Ratio 1.1 Stool Occult Blood 10/12/19 10/12/19 12:31 13:45 WBC RBC Hgb Hct MCV MCH MCHC RDW Plt Count MPV Absolute Neuts (auto) Absolute Lymphs (auto) Absolute Monos (auto) Absolute Eos (auto) Absolute Basos (auto) Neutrophils % Lymphocytes % Monocytes % Eosinophils % Basophils % PT 9.5 INR 0.95 PTT (SP) 24.5 Sodium Potassium Chloride Carbon Dioxide Anion Gap BUN Creatinine BUN/Creatinine Ratio POC Glucose Random Glucose Serum Osmolality Calcium Total Bilirubin AST ALT Alkaline Phosphatase Creatine Kinase CK-MB (CK-2) CK-MB (CK-2) % Troponin I Serum Total Protein Albumin Globulin Albumin/Globulin Ratio Stool Occult Blood Negative - EKG/XRAY/CT Comments: Ventricular paced rhythm, rate 95, nonspecific ST abnormality Stroke Information - Onset of Symptoms Symptoms of Stroke: Aphasia - Last known normal was 1800 10/11/19 Departure - Departure Clinical Impression: Expressive aphasia, TIA (transient ischemic attack), Anemia Time of Disposition: 14:18 Disposition: Discharge to Home or Self Care Condition: Fair Departure Forms: ED Discharge - Pt. Copy, Patient Portal Self Enrollment Referrals: MALENA TREJO MD [Primary Care Provider] - 1-2 Weeks Home Medications: Ambulatory Orders RX: Allopurinol 300 mg PO DAILY 09/30/19 RX: Amlodipine Besylate 10 mg PO DAILY 09/30/19 RX: Aspirin [Aspirin Childrens] 81 mg PO DAILY 09/30/19 RX: Atorvastatin Calcium [Lipitor] 20 mg PO DAILY 09/30/19 RX: Clopidogrel Bisulfate 75 mg PO DAILY 09/30/19 RX: Furosemide 20 mg PO DAILY 09/30/19 RX: Gabapentin 600 mg PO BID 09/30/19 RX: Losartan Potassium 100 mg PO DAILY 09/30/19 RX: Metoprolol Succinate [Metoprolol Succinate ER] 25 mg PO DAILY 09/30/19 RX: Cyclobenzaprine HCl [Flexeril] 10 mg PO Q8H PRN #30 tab 10/09/19 RX: HYDROcodone 10MG/APAP 325MG [[place] 10/325] 1 ea PO Q4H PRN tab 10/09/19 Rivaroxaban [Xarelto] 10 mg PO DAILY #10 tab 10/09/19 Comments: Pt presents with expressive aphasia. Last well time was 1800 last night. Pt awoke and tried to talk to his son and states he knew what he wanted to say, but could not form the words. Symptoms resolved by arrival to ED. Pt is on Xarelto, Plavix and aspirin which were stopped before he had right total knee replacement last week and now were restarted. CT brain negative. Of note, Hgb was 11.9 on 10/08 the day following surgery and is 7.5 today. Denies black stool and he is guiac negative here. RLE shows no ecchymosis, bleeding and compartments are soft. Transfer to Outside Facility - Transfer Information Decision to Transfer Date: 10/12/19 Decision to Transfer Time: 14:23 Reason for Transfer: Further Neuro workup Accepting Provider:: Dr. Castro Accepting Facility: [facility]
--- NOTE | 2019-10-12 11:55 | CT ---
Sex: Male. : 1950. TECHNIQUE: Axial scans of the brain without contrast including multiplanar computer-generated reformations. Total Dose Length Product: 967. This exam was performed according to our departmental dose-optimization program, which includes automated exposure control, adjustment of the mA and/or kV according to patient size and/or use of iterative reconstruction technique. Comparison studies: CT scan on June 25, 2014. Clinical history: expressive aphasia. Scalp: Unremarkable. Intracranial mass: None. Intracranial density: There is a cavitated lacunar infarct in the right thalamus. This is a chronic finding comparing to the previous exam. No other abnormal focal intracranial density. Intracranial hemorrhage: No intracranial hemorrhage. Extra-axial fluid collection: None. Midline shift: None Ventricles, subarachnoid spaces and sulci: Normal. Calvarium: Unremarkable. Orbits: Unremarkable. Paranasal sinuses: Aerated. IMPRESSION: 1. Chronic right thalamic lacunar infarct. 2. No other intracranial findings. 3. If further imaging evaluation of expressive aphasia is desired recommend diffusion MRI Electronically signed by: Mike Ramires MD 10/12/2019 11:54 AM [facility]
--- NOTE | 2019-10-12 12:03 | RAD ---
: 1950. Technique: Portable AP chest x-ray. Comparison: December 04, 2011. Clinical history: Possible stroke. Heart size: Normal. Left transvenous and epicardial pacemaker. No pulmonary edema Lungs: No acute consolidation. Pleura: No pleural effusion. No pneumothorax. Mediastinum and loida: Unremarkable. Skeletal: Unremarkable. Support tubings: None. Impression: 1. No active disease in the chest. Electronically signed by: Mike Ramires MD 10/12/2019 12:02 PM [facility]
[2019-10-12] MEDS ORDERED: SODIUM CHLORIDE 0.9% 1000ML 1,000 ML IVS PRN (12:42)
[2019-10-12] MEDS ORDERED: ONDANSETRON INJ 4 MG/2 ML VIAL IV ONE (13:42)
[2019-10-12 17:03] VITALS: BP 155/80; TEMP 99.5; O2SAT 97
== END 2019-10-12 15:30 | disposition home or self-care (01) ==
LOC: ER 11:08
DX: G45.9 Transient cerebral ischemic attack, unspecified (principal); R47.01 Aphasia; D64.9 Anemia, unspecified; I12.9 Hypertensive chronic kidney disease with stage 1 through stage 4 chronic kidney disease, or unspecified chronic kidney disease; N18.3 Chronic kidney disease, stage 3 (moderate); Z95.0 Presence of cardiac pacemaker; Z86.73 Personal history of transient ischemic attack (TIA), and cerebral infarction without residual deficits; Z79.01 Long term (current) use of anticoagulants; Z79.02 Long term (current) use of antithrombotics/antiplatelets; Z79.82 Long term (current) use of aspirin; Z79.899 Other long term (current) drug therapy; Z96.651 Presence of right artificial knee joint
CPT/HCPCS: 70450; 71045; 80053; 82270; 82550; 82553; 82948; 84484; 85025; 85610; 85730; 93005; J2405; J7030

== ENCOUNTER 2019-10-20 17:23 | Emergency (ER) | payer MEDICARE, OTHER ==
[2019-10-20] MEDS ORDERED: SODIUM CHLORIDE 0.9% (FLUSH) 10 ML SYG IV PRN (17:31)
[2019-10-20] MEDS ORDERED: SODIUM CHLORIDE 0.9% 1000ML 1,000 ML IVS ONE (17:31)
[2019-10-20] MEDS ORDERED: ACETAMINOPHEN 500 MG TAB PO ONE (17:38)
--- NOTE | 2019-10-20 17:43 | ED.PDOC ---
History of Present Illness - General Time Seen by Provider: 10/20/19 17:30 Additional Information: The patient is a 69 year old male with history of CAD s/p 4v CABG, HTN, CKD who was referred to the ED by Dr. Matthews for possible sepsis. The patient underwent a knee replacement two weeks ago and presented to the hospital with expressive aphasia concerning for stroke. He was transferred to [facility] where he underwent stroke workup (MRI could not be performed due to pacemaker placement) without significant findings. He was noted, however, to have significant decline in his hemoglobin to 6.0 and underwent EGD showing bleeding ulcer. He was started on carafate and protonix and discharged. He says two days ago he developed left sided chest pain, worse with coughing and deep inspiration. He also developed fever and chills. He has had a mild non- productive cough. At his PCP office today he had an oxygen saturation of 87% and was referred to the ED for continued evaluation and management. Review of Systems - Review of Systems Constitutional: States: chills, fever, malaise Respiratory: States: cough, short of breath. Denies: wheezing Cardiology: States: chest pain. Denies: edema, palpitations, syncope Gastrointestinal/Abdominal: States: abdominal pain. Denies: constipation, ian rrhea, nausea, vomiting Genitourinary: Denies: discharge, dysuria, frequency, hematuria Musculoskeletal: States: no symptoms reported Skin: States: no symptoms reported Neurological: States: no symptoms reported Endocrine: States: no symptoms reported Hematologic/Lymphatic: States: no symptoms reported All other Systems: Reviewed and Negative Past Medical History (General) - Patient Medical History Hx Seizures: No Hx Stroke: Yes - brain stem CVA 2010 Hx Asthma: No Hx of COPD: No Hx Cardiac Disorders: Yes - Hypercholesterolemia Hx Congestive Heart Failure: No Hx Pacemaker: Yes Hx Hypertension: Yes Hx Diabetes: No Hx Renal Disease: Yes - Stage 3 Hx MRSA: No - Vaccination History Hx Influenza Vaccination: Yes - 2012 - Social History Hx Tobacco Use: No Hx Alcohol Use: No Hx Substance Use: No Hx Physical Abuse: No Hx Emotional Abuse: No Family Medical History - Family History Father Hx Cardiac Disease: Yes Hx Family;Other: Hx of kidney failure Physical Exam - Physical Exam General Appearance: Anxious, Ill Appearing, Other - dry mucous membranes ENT Exam: normal ENT inspection Neck: non-tender, full range of motion Respiratory: normal breath sounds, other - left sided chest wall tenderness Cardiovascular/Chest: tachycardia Gastrointestinal/Abdominal: non tender, soft, no organomegaly, no pulsatile mass Extremity: no pedal edema Neurologic: no motor/sensory deficits, alert, normal mood/affect, oriented x 3 Skin Exam: pallor Progress - Progress Progress: 10/20/19 19:21 Patient reassessed, IVF infusing, fever reduced but remains tachycardic at continued rate of 150. I am suspicious for AF 2:1 block, will give small dose of diltiazem. Bedside sono shows left pleural effusion, no pericardial fluid. 10/20/19 19:[address] Andrew at [facility], accepts transfer for sepsis. patient and family updated on plan of care. 10/20/19 19:51 MDM Patient presents with cough and fever, CXR shows LLL PNA with effusion. HR 150s, sinus tachycardia likely secondary to sepsis. No findings concerning for acute septic shock. Treated with 2L normal saline, vancomycin and cefepime given recent hospitalizations. CKD at baseline. Transferred to [facility] for higher level of care. - Results/Orders Results/Orders: Laboratory Tests 10/20/19 10/20/19 10/20/19 18:10 18:10 18:10 WBC 20.3 H* RBC 2.95 L Hgb 8.8 L Hct 26.4 L MCV 89.7 MCH 30.0 MCHC 33.4 RDW 16.4 H Plt Count 534 H MPV 7.5 Absolute Neuts (auto) Not Reportable Absolute Lymphs (auto) Not Reportable Absolute Monos (auto) Not Reportable Absolute Eos (auto) Not Reportable Neutrophils % Not Reportable Neutrophils % (Manual) 80.0 H Lymphocytes % Not Reportable Lymphocytes % (Manual) 8.0 Monocytes % Not Reportable Monocytes % (Manual) 2.0 Eosinophils % Not Reportable Basophils % Not Reportable Band Neutrophils 10.0 H Platelet Estimate Increased Normal RBC Morphology Normal rbc morph PT 11.1 H INR 1.11 PTT (SP) 35.0 H D-Dimer, Quantitative 2.16 H* Sodium 128 L Potassium 3.5 L Chloride 89 L Carbon Dioxide 25 Anion Gap 17.5 BUN 31 H Creatinine 1.98 H BUN/Creatinine Ratio 15.7 Random Glucose 133 H Serum Osmolality 265.5 L Lactic Acid Calcium 8.1 L Total Bilirubin 0.8 AST 31 ALT 21 Alkaline Phosphatase 80 Creatine Kinase 28 L CK-MB (CK-2) 1.7 CK-MB (CK-2) % Not Reportable Troponin I 0.09 H* Serum Total Protein 5.9 L Albumin 2.3 L Globulin 3.6 H Albumin/Globulin Ratio 0.6 L Urine Color Urine Appearance Urine pH Ur Specific Rock Urine Protein Urine Glucose (UA) Urine Ketones Urine Blood Urine Nitrite Urine Bilirubin Urine Urobilinogen Ur Leukocyte Esterase Urine RBC Urine WBC Ur Epithelial Cells Amorphous Sediment Urine Bacteria Hyaline Casts 10/20/19 10/20/19 18:10 18:55 WBC RBC Hgb Hct MCV MCH MCHC RDW Plt Count MPV Absolute Neuts (auto) Absolute Lymphs (auto) Absolute Monos (auto) Absolute Eos (auto) Neutrophils % Neutrophils % (Manual) Lymphocytes % Lymphocytes % (Manual) Monocytes % Monocytes % (Manual) Eosinophils % Basophils % Band Neutrophils Platelet Estimate Normal RBC Morphology PT INR PTT (SP) D-Dimer, Quantitative Sodium Potassium Chloride Carbon Dioxide Anion Gap BUN Creatinine BUN/Creatinine Ratio Random Glucose Serum Osmolality Lactic Acid 1.6 Calcium Total Bilirubin AST ALT Alkaline Phosphatase Creatine Kinase CK-MB (CK-2) CK-MB (CK-2) % Troponin I Serum Total Protein Albumin Globulin Albumin/Globulin Ratio Urine Color Yellow Urine Appearance Cloudy Urine pH 6.0 Ur Specific Rock 1.015 Urine Protein >=300 H Urine Glucose (UA) Negative Urine Ketones Negative Urine Blood Trace-lysed H Urine Nitrite Negative Urine Bilirubin Negative Urine Urobilinogen 0.2 Ur Leukocyte Esterase Negative Urine RBC 0-1 Urine WBC 0-1 Ur Epithelial Cells 1-3 Amorphous Sediment 3+ Urine Bacteria 1+ Hyaline Casts 0-1 - EKG/XRAY/CT EKG: Tachy Comments: 1733 sinus tachycardia at 155, LBBB no STEMI Departure - Departure Clinical Impression: Sepsis Qualifiers: Sepsis type: sepsis due to unspecified organism Sepsis acute organ dysfunction status: without acute organ dysfunction Qualified Code(s): A41.9 - Sepsis, unspecified organism Pneumonia Qualifiers: Pneumonia type: due to unspecified organism Laterality: left Lung location: lower lobe of lung Qualified Code(s): J18.9 - Pneumonia, unspecified organism Chronic kidney disease Qualifiers: Chronic kidney disease stage: unspecified stage Qualified Code(s): N18.9 - Chronic kidney disease, unspecified Time of Disposition: 19:50 Disposition: Transfer to Hospital Condition: Fair Referrals: MALENA MATTHEWS MD [Primary Care Provider] - 1-2 Weeks Home Medications: Ambulatory Orders Allopurinol 300 mg PO DAILY 09/30/19 Amlodipine Besylate 10 mg PO DAILY 09/30/19 Aspirin [Aspirin Childrens] 81 mg PO DAILY 09/30/19 Atorvastatin Calcium [Lipitor] 20 mg PO BEDTIME 09/30/19 Clopidogrel Bisulfate 75 mg PO DAILY 09/30/19 Furosemide 20 mg PO DAILY 09/30/19 Gabapentin 600 mg PO BID 09/30/19 Losartan Potassium 100 mg PO DAILY 09/30/19 Metoprolol Succinate [Metoprolol Succinate ER] 25 mg PO BID 09/30/19 Multiple Vitamins W/ Minerals [Centrum Silver] 1 tab PO DAILY 10/20/19
[2019-10-20] MEDS ORDERED: CEFEPIME 2 GM in SODIUM CHL 0.9% 50ML MIN-BAG+ 50 ML IVPB ONE (18:38)
[2019-10-20] MEDS ORDERED: VANCOMYCIN HCL INJ 1,000 MG in SODIUM CHLORIDE 0.9% 250ML 250 ML IVPB ONE (18:38)
[2019-10-20] MEDS ORDERED: VANCOMYCIN HCL INJ 1,000 MG VIAL IVPB ONE (18:47)
[2019-10-20] MEDS ORDERED: CEFEPIME 2 GM VIAL ONE (18:47)
[2019-10-20] MEDS ORDERED: SODIUM CHLORIDE 0.9% 250ML 250 ML ONE (18:47)
[2019-10-20] MEDS ORDERED: SODIUM CHL 0.9% 50ML MIN-BAG+ 50 ML IVPB ONE (18:47)
--- NOTE | 2019-10-20 19:07 | RAD ---
EXAM DESCRIPTION: XR Chest,1 View CLINICAL HISTORY: cough TECHNIQUE: Single frontal view of the chest is submitted. COMPARISON: 10/12/2019 FINDINGS: Heart: The cardiothoracic silhouette is mildly enlarged, stable. Prior CABG. Left chest wall pacer remains in place. Lungs: Patchy left basilar opacification, new from the prior. Mediastinum: Thoracic aortic atherosclerosis. Pleura: Blunting of the left costophrenic angle. Bones: Prior median sternotomy. Multilevel spondylosis. Upper abdomen: Unremarkable IMPRESSION: New left basilar opacification which may reflect a combination of a small left pleural effusion and underlying consolidation (atelectasis and/or infiltrate). Electronically signed by: Paulina Hdez MD 10/20/2019 7:05 PM [facility]
[2019-10-20 20:04] VITALS: BP 98/69; TEMP 97.7; O2SAT 92
== END 2019-10-20 20:15 | disposition short-term general hospital (02) ==
LOC: ER 17:23
DX: A41.9 Sepsis, unspecified organism (principal); J18.9 Pneumonia, unspecified organism; N18.3 Chronic kidney disease, stage 3 (moderate); I12.9 Hypertensive chronic kidney disease with stage 1 through stage 4 chronic kidney disease, or unspecified chronic kidney disease; R00.0 Tachycardia, unspecified; I44.7 Left bundle-branch block, unspecified; E78.00 Pure hypercholesterolemia, unspecified; Z95.0 Presence of cardiac pacemaker; Z95.1 Presence of aortocoronary bypass graft
CPT/HCPCS: 71045; 80053; 81001; 82550; 82553; 83605; 84484; 85025; 85379; 85610; 85730; 87040; 87502; 93005; 94760; J0692; J3370; J7030; J7050

== ENCOUNTER → 2020-01-12 | Outpatient (CLI) | payer MEDICARE, OTHER | LOC: GMAE 10:35 | PROVIDERS: ATTEND Family Medicine | DX: Z12.5 Encounter for screening for malignant neoplasm of prostate (principal); M10.071 Idiopathic gout, right ankle and foot; I10 Essential (primary) hypertension; E78.2 Mixed hyperlipidemia; Z79.899 Other long term (current) drug therapy | CPT/HCPCS: 84443; 84550; G0103 ==

== ENCOUNTER 2020-10-04 17:42 | Inpatient (IN) | payer MEDICARE, OTHER ==
--- NOTE | 2020-10-04 18:03 | ED.PDOC ---
History of Present Illness - General Time Seen by Provider: 10/04/20 18:00 Source: patient, RN notes reviewed, Vital Signs reviewed Additional Information: .Patient, presents to the ER because he was at home when he noticed that his blood pressure was low, and the oxygen was low, patient was using his old machine, patient was able ambulate with a steady gait did not be in any distress, patient has a long complicated medical history including status post knee surgery he ended up having sepsis and ended up having a bowel perforation that required resection, and patient at the moment is on a colostomy. Past 4 days if not better blood pressure is lower than usual, as of bradycardia still very weak does have a history of a stroke gout hypertension esophagitis Patient at the moment does not appear in any distress - History of Present Illness Timing/Duration: other - 4 days Worsening Factors: nothing Associated Symptoms: denies symptoms Allergies/Adverse Reactions: Allergies Quetiapine [From Seroquel] Adverse Reaction (Verified 10/04/20 18:08) Home Medications: Ambulatory Orders Allopurinol 300 mg PO DAILY 09/30/19 Amlodipine Besylate 10 mg PO DAILY 09/30/19 Aspirin [Aspirin Childrens] 81 mg PO DAILY 09/30/19 Atorvastatin Calcium [Lipitor] 20 mg PO BEDTIME 09/30/19 Clopidogrel Bisulfate 75 mg PO DAILY 09/30/19 Furosemide 20 mg PO DAILY 09/30/19 Gabapentin 600 mg PO BID 09/30/19 Losartan Potassium 100 mg PO DAILY 09/30/19 Metoprolol Succinate [Metoprolol Succinate ER] 25 mg PO BID 09/30/19 Multiple Vitamins W/ Minerals [Centrum Silver] 1 tab PO DAILY 10/20/19 Review of Systems - Review of Systems Constitutional: States: weakness EENTM: States: no symptoms reported Respiratory: States: no symptoms reported Cardiology: States: no symptoms reported Gastrointestinal/Abdominal: States: no symptoms reported Genitourinary: States: no symptoms reported Musculoskeletal: States: no symptoms reported Skin: States: no symptoms reported Neurological: States: no symptoms reported Endocrine: States: no symptoms reported Hematologic/Lymphatic: States: no symptoms reported Past Medical History (General) - Patient Medical History Hx Seizures: No Hx Stroke: Yes - brain stem CVA 2010 Hx Asthma: No Hx of COPD: No Hx Cardiac Disorders: Yes - Hypercholesterolemia Hx Congestive Heart Failure: No Hx Pacemaker: Yes Hx Hypertension: Yes Hx Diabetes: No Hx Renal Disease: Yes - Stage 3 Hx MRSA: No - Vaccination History Hx Influenza Vaccination: Yes - 2013 - Social History Hx Tobacco Use: No Hx Alcohol Use: No Hx Substance Use: No Hx Physical Abuse: No Hx Emotional Abuse: No Family Medical History - Family History Father Hx Cardiac Disease: Yes Hx Family;Other: Hx of kidney failure Physical Exam - Physical Exam General Appearance: Well Developed, Well Groomed, Well Hydrated, Well Nourished Ears, Nose, Throat: hearing grossly normal, normal ENT inspection, normal pharynx Neck: non-tender, supple, normal inspection Respiratory: chest non-tender, lungs clear, normal breath sounds, no respiratory distress, no accessory muscle use Cardiovascular/Chest: normal peripheral pulses, regular rate, rhythm, no edema, no gallop, no JVD, no murmur Peripheral Pulses: radial,right: 2+, radial,left: 2+ Gastrointestinal/Abdominal: normal bowel sounds, non tender, soft, no organomegaly, no pulsatile mass Back Exam: normal inspection, no CVA tenderness, no vertebral tenderness Extremity: normal range of motion, non-tender, normal inspection, no pedal edema, no calf tenderness 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 as tested, no motor/sensory deficits, alert, normal mood/affect, oriented x 3 DTR: 4+: Biceps, left, Biceps, right Skin Exam: normal color Lymphatic: no adenopathy Progress - Progress Progress: Patient presenting to the ER because of generalized weakness, and his blood pressure was lower at home, and has some low oxygen as well, patient did not have any evidence of respiratory distress in the ER was able to ambulate with a steady gait, and did not appear any distress, his blood pressure was normal I was 100% on room air, I told him that I was going to check basic labs including CBC chemistry EKG troponins and chest x-ray. His chest x-ray did not show pneumonia, EKG pacemaker rhythm . Patient with evidence of acute renal failure, with higher BUN and creatinine that his usual, with evidence of metabolic acidosis, patient potassium was elevated. calcium gluconate, insulin, d50, albuterol, and Kayexalate, as this patient is on metabolic acidosis due to renal failure, I will also put him on a sodium bicarb drip which will help with the hyperkalemia as well he was born with just 1 kidney, case was consulted with the cage operator, at this point this patient does not need emergency dialysis, no evidence of fluid overload no evidence of abdomen to status no evidence of respiratory distress or failure, but patient will be seen by the cage operator while he is admitted into our facility, Patient will be treated in the ER for hyperkalemia and metabolic acidosis Departure - Departure Clinical Impression: Acute renal failure Qualifiers: Acute renal failure type: unspecified Qualified Code(s): N17.9 - Acute kidney failure, unspecified Disposition: Admit Patient Condition: Fair Referrals: MALENA TREJO MD [Primary Care Provider] - 1-2 Weeks Home Medications: Ambulatory Orders Allopurinol 300 mg PO DAILY 09/30/19 Amlodipine Besylate 10 mg PO DAILY 09/30/19 Aspirin [Aspirin Childrens] 81 mg PO DAILY 09/30/19 Atorvastatin Calcium [Lipitor] 20 mg PO BEDTIME 09/30/19 Clopidogrel Bisulfate 75 mg PO DAILY 09/30/19 Furosemide 20 mg PO DAILY 09/30/19 Gabapentin 600 mg PO BID 09/30/19 Losartan Potassium 100 mg PO DAILY 09/30/19 Metoprolol Succinate [Metoprolol Succinate ER] 25 mg PO BID 09/30/19 Multiple Vitamins W/ Minerals [Centrum Silver] 1 tab PO DAILY 10/20/19 Decision To Admit - Decistion To Admit Decision to Admit Reason: Admit from ER Decision to Admit Date: 10/04/20 Decision to Admit Time: 19:14
--- NOTE | 2020-10-04 18:27 | RAD ---
EXAM: XR Chest, 1 View CLINICAL HISTORY: The patient is 70 years old and is Male; weakness TECHNIQUE: Single view of the chest. COMPARISON: October 20, 2019. FINDINGS: Lungs: Unremarkable. No consolidation. Pleural space: Unremarkable. No pneumothorax. Heart: Status post CABG surgery. No cardiomegaly. Mediastinum: Unremarkable. Bones/joints: Sternal closure wires. No acute fracture visualized. Other findings: Left-sided ICD/pacer. IMPRESSION: 1. No acute cardiopulmonary process identified. 2. Left-sided ICD/pacer. Electronically signed by: Tiffany Michel MD 10/04/2020 6:26 PM [facility] [[email or web address]]
[2020-10-04] MEDS ORDERED: SODIUM BICARBONATE VIAL 50 MEQ/50 ML VIAL IV ONE (19:03)
[2020-10-04] MEDS ORDERED: CALCIUM GLUCONATE INJ 1 GM/10 ML VIAL IV ONE (19:06)
[2020-10-04] MEDS ORDERED: ALBUTEROL SULFATE 2.5 MG/3 ML VIAL NEB ONE (19:07)
[2020-10-04] MEDS ORDERED: SOD POLYSTYRENE SULFONATE 15 GM/60 ML BTTL PO ONE (19:07)
[2020-10-04] MEDS ORDERED: INSULIN, REG.(HUMAN) 100 U/ML VIAL IV ONE (19:08)
[2020-10-04] MEDS ORDERED: DEXTROSE 50% 25 GM/50 ML SYG IV ONE (19:09)
[2020-10-04] MEDS ORDERED: SODIUM BICARBONATE VIAL 75 MEQ in DEXTROSE 5% 1000ML 1,000 ML IVS SCH (19:30)
--- NOTE | 2020-10-04 19:30 | CT ---
CT ABDOMEN PELVIS WITHOUT IV CONTRAST HISTORY: Renal failure. COMPARISON: None. TECHNIQUE: CT scan of the abdomen and pelvis was performed without IV contrast. This exam was performed according to our departmental dose-optimization program, which includes automated exposure control, adjustment of the mA and/or kV according to patient size and/or use of iterative reconstruction technique. FINDINGS: The lung bases are clear. No pleural or pericardial effusions. There is no hiatal hernia. There has been a prior cholecystectomy. The liver, spleen, and pancreas are unremarkable. There is thickening of the bilateral adrenal glands. The left kidney is absent. There are numerous cystic structures throughout the right kidney along with a small nonobstructing stone. No hydronephrosis. The pelvic organs are grossly unremarkable. There has been a prior right upper quadrant ostomy without evidence of bowel obstruction. The appendix is not visualized. There are scattered colonic diverticula without surrounding inflammatory changes. There is no intraperitoneal adenopathy, free fluid, or free air. The infrarenal abdominal aorta has a maximum diameter of 4.4 cm and is diffusely atherosclerotic. The bony structures are preserved. IMPRESSION: 1. Absent left kidney. Multiple cysts in the right kidney along with a small nonobstructing stone but no hydronephrosis. 2. Right upper quadrant ostomy without evidence of bowel obstruction. Electronically signed by: Frantz Quan MD 10/04/2020 7:29 PM [facility]
[2020-10-04] MEDS ORDERED: SODIUM BICARBONATE VIAL 50 MEQ/50 ML VIAL ONE (20:16)
[2020-10-04] MEDS ORDERED: DEXTROSE 5% 1000ML 1,000 ML IVS ONE (20:19)
--- NOTE | 2020-10-04 20:59 | HP ---
SUPERVISING PHYSICIAN: Marcellus Stock MD CHIEF COMPLAINT: Low blood pressure and generalized weakness. HISTORY OF PRESENT ILLNESS: Mr. Souza is a 70-year-old male patient who has a history of chronic renal failure not currently on dialysis with a history of one kidney. He presented to the ER today because he noticed his blood pressure at home was low on his machine and he was also having some lower extremity weakness which has been progressively worsening over the last several days. He does have a colostomy as he has a history of previous bowel perforation due to sepsis. He is reporting that his blood pressure has been lower over the last four days than normal. Also, he has been slightly bradycardic and just generalized weakness with some unexpected weight loss. His labs in the ER showed his creatine was 9.6. The last creatinine I have on medical records review was last year in September and was 1.9. He endorses he had lab work done in recent weeks as he is waiting to have his colostomy possibly reversed or repaired because he has a large hernia and he noted his creatinine at the time was around 4. He is followed by Dr. Higgins. Given his labs indicating acute renal failure with a metabolic acidosis as his CO2 was less than 7, potassium was showing some hyperkalemia at 5.9, he was treated with insulin, dextrose and 2 amps of bicarb and started on sodium bicarb infusion after consulting with Dr. Higgins. Dr. Higgins requested the patient be admitted in [place] after treatment and started on bicarb and he will consult on the patient in the morning. The patient was stable. A CT of his abdomen was also completed and showed no evidence of any bowel obstruction. Left kidney was absent with multiple cysts in the right kidney along with a small nonobstructing stone, but no hydronephrosis. Vital signs showed he was stable as he was afebrile with temperature 98.1, pulse 78, blood pressure 118/51, saturation 98% on room air. The patient now is going to be admitted for treatment of acute renal failure with nephrology consultation with Dr. Higgins in the morning. He was admitted in stable condition. PAST MEDICAL HISTORY: 1. Chronic tension headaches. 2. Hyperlipidemia. 3. Hypertension. 4. Single kidney with chronic renal failure, followed by Dr. Higgins. 5. Coronary artery disease with previous stent placements. 6. Abdominal aortic aneurysm measuring 3.9 cm in December of 2018, followed by primary care physician, Dr. Matthews. 7. 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 Matthews. 8. Hepatitis C diagnosed in 2008. 9. Previous cerebrovascular accident in 2010. PAST SURGICAL HISTORY: 1. Cholecystectomy. 2. Sinus surgery. 3. Coronary artery bypass graft x4 vessels in 2008. 4. Coronary artery stent in 2001. 5. Bilateral hernia repairs. 6. Pacemaker implantation. 7. Colectomy with colostomy. HOME MEDICATIONS: 1. Prilosec 40 mg daily. 2. Metoprolol succinate extended release 50 mg b.i.d. 3. Losartan, potassium 100 mg daily. 4. Gabapentin 600 mg b.i.d. 5. Plavix 75 mg daily. 6. Lipitor 20 mg daily. 7. Aspirin 81 mg daily. 8. Amlodipine 10 mg daily. 9. Allopurinol 300 mg daily. ALLERGIES: NO KNOWN DRUG ALLERGIES. FAMILY HISTORY: Father at age 85 with chronic kidney issues. Mother had a history of Alzheimer's disease. 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 He is . He lives in [place]. He has a history of smoking cigarettes but quit in 2007. He has no current history of drinking or illicit drug use. REVIEW OF SYSTEMS: CONSTITUTIONAL: As noted in history of present illness, just generalized weakness. Denies any fevers, chills. HEENT: Denies headaches, sore throats, earaches, nasal congestion, vision changes. RESPIRATORY: Denies coughing, wheezing or shortness of breath. CARDIOVASCULAR: Denies chest pain, palpitations or syncopal episodes. GASTROINTESTINAL: Denies nausea, vomiting, diarrhea, constipation or abdominal pain. GENITOURINARY: Denies dysuria, hematuria, polyuria although he notes he has not had much urine output over the last 2 days. MUSCULOSKELETAL: Generalized weakness as noted in history of present illness. NEUROLOGIC: Denies ataxia, seizures, paresthesias, headaches, syncopal episodes. HEMATOLOGIC: Denies unexplained bleeding, bruising or transfusion reactions. PHYSICAL EXAMINATION: VITAL SIGNS: Temperature 98.1, pulse 78, blood pressure 118/51, respirations 18, saturation 98% on room air. GENERAL: The patient is resting and is in no acute distress. He is alert. HEENT: Tympanic membranes clear bilaterally. Oropharynx is pink with dry mucous membranes. NECK: Supple, nontender with full range of motion. No jugular venous distention noted. RESPIRATORY: Lung sounds are clear to auscultation bilaterally without any rhonchi, wheezes or rales. CARDIOVASCULAR: Regular rate and rhythm without any appreciable murmurs, gallops, or rubs. ABDOMEN: Soft, nontender. Colostomy in the right upper quadrant. He has a binder in place as there is a large hernia underneath the binder when it is removed. BACK: No CVA or vertebral tenderness. EXTREMITIES: There is no cyanosis, clubbing or edema. NEUROLOGIC: Cranial nerves II-XII are grossly intact. The patient is alert and oriented times three. SKIN: Warm, pink and dry. LABORATORY: CBC showed white count 13,000, hemoglobin 12.3, hematocrit 38.3, platelet count 239,000. Differential is without a left shift. Chemistries show sodium 130, initial potassium 5.9, chloride 107, carbon dioxide less than 7. Anion gap elevated at 21.9, BUN 75, creatinine 9.61. Glucose 110. Liver functions within normal limits. Calcium 9.1. Troponin less than 0.02. Urinalysis pending. RADIOLOGY: Chest x-ray per radiologic interpretation showed no acute cardiopulmonary process identified. There is note of a left sided ICD/pacer. Abdomen and pelvis CT without contrast shows absent left kidney with multiple cysts in the right kidney along with a nonobstructing stone with no hydronephrosis. There is note of a right upper quadrant ostomy without any evidence of bowel obstruction. ASSESSMENT: 1. Acute on chronic renal failure. 2. Metabolic acidosis secondary to #1. 3. Hyperkalemia secondary to #1. 4. History of hypertension. 5. History of coronary artery disease with history of previous stent placement and coronary artery bypass graft. 6. History of abdominal aortic aneurysm and left common iliac aneurysm, followed by primary care physician, Dr. Matthews. 7. History of hepatitis C diagnosed in 2008. 8. History of previous cerebrovascular accident in 2010. I believe it was noted as a brainstem stroke. The patient is without any noted deficits. PLAN: Mr. Souza is going to be admitted for treatment of acute on chronic renal failure. Dr. Higgins was consulted in the ER and recommended the patient be admitted and he would see the patient tomorrow after admission as he is in [place]. The patient has been followed by Dr. Higgins for multiple years. The patient was given 2 amps of bicarb IV push in the ER along with dextrose, insulin and calcium. He was also given a dose of Kayexalate. We will recheck his labs in the morning. He will be on telemetry tonight. He will be followed up on the bicarbonate infusion with 75 mEq per liter of D5W running at 125. According to him, he has not had any significant urinary output and certainly we will need to get a urine on him as soon as he can. He does look a little dry so hopefully he will show some improvement with some fluids. Again, we will monitor closely and hopefully be able to discharge in the next 24 to 48 hours. I do anticipate his length of stay to be about two to three days, but we will await Dr. Higgins's consultation. At this point, the patient is not showing any fluid overload. He is stable, but certainly guarded condition given his current renal function. Until the patient can transition to outpatient management, we will continue to monitor and treat as needed. #[id number] [facility]
[2020-10-04] MEDS ORDERED: ACETAMINOPHEN 325 MG TAB PO PRN (22:27)
[2020-10-04] MEDS ORDERED: SODIUM CHLORIDE 0.9% (FLUSH) 10 ML SYG IV PRN (22:27)
[2020-10-04] MEDS ORDERED: ALBUTEROL SULFATE 2.5 MG/3 ML VIAL NEB PRN (22:27)
[2020-10-04] MEDS ORDERED: ONDANSETRON INJ 4 MG/2 ML VIAL IV PRN (22:27)
[2020-10-04] MEDS ORDERED: CLOPIDOGREL 75 MG TAB ONE (22:44)
[2020-10-04] MEDS: CLOPIDOGREL 75 MG TAB PO SCH (22:44)
[2020-10-04] MEDS: IV SET AND CAP CHANGE INJ INJ SCH (22:45)
[2020-10-04] MEDS: GABAPENTIN 300 MG CAP PO SCH (22:45)
[2020-10-05] MEDS ORDERED: SODIUM BICARBONATE SYRINGE 75 MEQ in DEXTROSE 5% 1000ML 1,000 ML IV PRN (02:00)
[2020-10-05] MEDS ORDERED: DEXTROSE 5% 1000ML 1,000 ML IVS ONE ×2 (03:08→15:05)
[2020-10-05] MEDS ORDERED: SODIUM BICARBONATE VIAL 50 MEQ/50 ML VIAL ONE ×2 (03:08→15:05)
[2020-10-05] MEDS ORDERED: amLODIPine BESYLATE 5 MG TAB ONE (08:08)
[2020-10-05] MEDS ORDERED: METOPROLOL SUCCINATE XL 50 MG TAB ONE (08:09)
[2020-10-05] MEDS ORDERED: ENOXAPARIN SODIUM 30 MG/0.3 ML SYG SUBCU ONE (09:23)
[2020-10-05] MEDS ORDERED: ENOXAPARIN SODIUM 30 MG/0.3 ML SYG SUBCU SCH (09:30)
[2020-10-05] MEDS: ATORVASTATIN 20 MG TAB PO SCH (09:51)
[2020-10-05] MEDS: ASPIRIN (CHEWABLE) 81 MG TAB PO SCH (09:51)
[2020-10-05] MEDS: ALLOPURINOL 300 MG TAB PO SCH (09:51)
[2020-10-05] MEDS: GABAPENTIN 300 MG CAP PO SCH ×2 (09:51→20:12)
[2020-10-05] MEDS: METOPROLOL TARTRATE 50 MG TAB PO SCH ×2 (09:51→20:12)
[2020-10-05] MEDS: HEPARIN SODIUM (PORCINE) 5,000 U/ML VIAL SUBCU SCH ×2 (09:52→20:13)
[2020-10-05] MEDS: amLODIPine BESYLATE 5 MG TAB PO SCH (09:53)
--- NOTE | 2020-10-05 10:00 | PN ---
SUPERVISING PHYSICIAN: Marcellus Stock MD DATE: 10/05/20 SUBJECTIVE: The patient states he feels okay today. He has a little bit more energy than he had yesterday, but he has not really been out of bed and states he does still get unsteady on his feet. OBJECTIVE: VITAL SIGNS: Blood pressure 94/52, heart rate 60, respiratory rate 16, temperature 98.5, oxygen saturation 94%. GENERAL: Mr. Souza is a 70-year-old male patient in no active distress. NEUROLOGIC: The patient is alert. LUNGS: Clear to auscultation bilaterally. CARDIOVASCULAR: Regular rate and rhythm. Normal S1, S2. ABDOMEN: Soft. He does have the ostomy in place. No tenderness to palpation. GENITOURINARY: Deferred. EXTREMITIES: Lower extremities with no edema. Pulses 2+. Capillary refill is less than 2 seconds. LABORATORY: White count 7.5, hemoglobin 10.1, hematocrit 30.2, platelet count 179. Chemistry shows sodium 130, potassium 3.9, chloride 103, CO2 now 11, BUN 80, creatinine 9.63, glucose 128, calcium 8.4. ASSESSMENT: 1. Acute on chronic renal failure. 2. Metabolic acidosis secondary to #1. 3. Hyperkalemia, resolved. 4. Hypertension. 5. Coronary artery disease. 6. History of hepatitis C. 7. History of cerebrovascular accident in 2010. PLAN: There has really been no improvement in his creatinine. I spoke with Dr. Higgins via telephone. He was supposed to come today, but he cannot make it to the hospital. I did discuss his labs and treatment with him. We are going to increase his fluids to 150, repeat labs in the morning and if there is no improvement, he will likely be transferred to [facility] for dialysis. At this time, we will continue IV hydration and monitor the patient as an inpatient here. #[id number] [facility]
[2020-10-05] MEDS: SODIUM BICARBONATE VIAL 75 MEQ in DEXTROSE 5% 1000ML 1,000 ML IV PRN ×2 (16:51→23:00)
[2020-10-05] MEDS ORDERED: CLOPIDOGREL 75 MG TAB ONE (19:57)
[2020-10-05] MEDS: CLOPIDOGREL 75 MG TAB PO SCH (20:12)
[2020-10-06] MEDS: SODIUM BICARBONATE VIAL 75 MEQ in DEXTROSE 5% 1000ML 1,000 ML IV PRN ×3 (04:29→20:05)
[2020-10-06] MEDS ORDERED: SODIUM CHLORIDE 0.9% 500ML 500 ML IVS PRN (06:13)
[2020-10-06] MEDS: ASPIRIN (CHEWABLE) 81 MG TAB PO SCH (08:56)
[2020-10-06] MEDS: ALLOPURINOL 300 MG TAB PO SCH (08:56)
[2020-10-06] MEDS: ATORVASTATIN 20 MG TAB PO SCH (08:56)
[2020-10-06] MEDS: METOPROLOL TARTRATE 50 MG TAB PO SCH ×2 (08:56→20:37)
[2020-10-06] MEDS: amLODIPine BESYLATE 5 MG TAB PO SCH (08:57)
[2020-10-06] MEDS: HEPARIN SODIUM (PORCINE) 5,000 U/ML VIAL SUBCU SCH ×2 (08:57→20:38)
[2020-10-06] MEDS: GABAPENTIN 300 MG CAP PO SCH ×2 (08:57→20:37)
--- NOTE | 2020-10-06 13:29 | PN ---
SUPERVISING PHYSICIAN: Marcellus Stock MD DATE: 10/06/20 SUBJECTIVE: The patient feels much better today. He is not having any dizziness and is more steady on his feet. He denies any complaints at this time actually. OBJECTIVE: VITAL SIGNS: Blood pressure 144/67, heart rate 61, respiratory rate 16, temperature 98.4, oxygen saturation 96%. GENERAL: Mr. Souza is a 70-year-old male patient in no active distress. NEUROLOGIC: The patient is alert. LUNGS: Clear to auscultation bilaterally. CARDIOVASCULAR: Regular rate and rhythm. Normal S1, S2. ABDOMEN: Soft. His ileostomy is still noted. EXTREMITIES: Lower extremities with no edema. LABORATORY: White count 7.4, hemoglobin 9.9, hematocrit 28.8, platelet count 180. Sodium 130, potassium 3.8, chloride 97, CO2 19, BUN 74, creatinine 5.55, glucose 108, calcium 8.0. ASSESSMENT: 1. Acute on chronic renal failure. 2. Metabolic acidosis secondary to #1, improved. 3. Hyperkalemia, resolved. 4. Hypertension, controlled. 5. Coronary artery disease. 6. History of hepatitis C. 7. History of cerebrovascular accident in 2010. PLAN: I spoke with Dr. Higgins once again regarding his current labs. He agrees with continued IV hydration and repeat labs tomorrow. He can likely be discharged tomorrow if his creatinine is down in a more normal range. He can followup with Dr. Higgins as an outpatient. He also has a Dixon catheter for very close I&O monitoring. This can be discontinued likely tomorrow once we are done with close monitoring of his I&O. #[id number] [facility]
[2020-10-06] MEDS: CLOPIDOGREL 75 MG TAB PO SCH (20:37)
[2020-10-07] MEDS: SODIUM BICARBONATE VIAL 75 MEQ in DEXTROSE 5% 1000ML 1,000 ML IV PRN ×2 (03:37→10:49)
[2020-10-07] MEDS: ASPIRIN (CHEWABLE) 81 MG TAB PO SCH (08:12)
[2020-10-07] MEDS: ATORVASTATIN 20 MG TAB PO SCH (08:12)
[2020-10-07] MEDS: GABAPENTIN 300 MG CAP PO SCH ×2 (08:12→20:28)
[2020-10-07] MEDS: METOPROLOL TARTRATE 50 MG TAB PO SCH ×2 (08:12→20:28)
[2020-10-07] MEDS: HEPARIN SODIUM (PORCINE) 5,000 U/ML VIAL SUBCU SCH ×2 (08:13→20:28)
[2020-10-07] MEDS: ALLOPURINOL 300 MG TAB PO SCH (08:13)
[2020-10-07] MEDS: amLODIPine BESYLATE 5 MG TAB PO SCH (08:13)
[2020-10-07] MEDS ORDERED: POTASSIUM CHLORIDE 20 MEQ TAB PO ONE (08:52)
[2020-10-07] MEDS ORDERED: MAGNESIUM SULFATE PREMIX 2GM 2 GM in PREMIX BAG 1 BAG IVPB ONE (11:05)
--- NOTE | 2020-10-07 13:25 | PN ---
SUPERVISING PHYSICIAN: Marcellus Stock MD DATE: 10/07/20 SUBJECTIVE: The patient is sitting up in bed reading. He has no complaints of nausea, vomiting, chest pain or seen by. He says he feels much better today than he did on admission. We discussed his plan of care and discharge plans. OBJECTIVE: VITAL SIGNS: Temperature 98.1, heart rate 65, blood pressure 112/74, respiratory rate 17, O2 saturation 95% on room air. RESPIRATORY: Essentially clear to auscultation bilaterally. CARDIAC: Regular rate and rhythm. NEUROLOGIC: Awake, alert and oriented times three. LABORATORY: WBCs 6.2, hemoglobin 7.7, hematocrit 28.5. Sodium 132, potassium 3.5, chloride 95, BUN 51, creatinine 2.79, calcium 8.3, magnesium 1.4. MICROBIOLOGY: Final urine culture shows no growth after 48 hours. All other labs and films have been reviewed via the EMR. ASSESSMENT: 1. Acute on chronic renal failure. 2. Metabolic acidosis secondary to #1, improved. 3. Hyperkalemia, resolved. 4. Hypertension, controlled. 5. Coronary artery disease. 6. History of hepatitis C. 7. History of cerebrovascular accident in 2010. PLAN: We will continue present supportive care. I have spoken to Dr. Higgins, supervisor parachute manufacturing in [place], and he recommended the patient's bicarb drip be discontinued and to check his labs tomorrow. He felt that if his creatinine was at 2 or below, he could go home with close followup with him as well as Dr. Matthews. I have given him some magnesium replacement as well as some potassium. His ileostomy is to be reversed at some point, but due to his extreme dehydration, he will probably need to be monitored closely for dehydration after discharge or until the ileostomy is reversed. I have ordered lab for in the morning. We will continue to monitor the patient closely and follow as needed. #[id number] [facility]
[2020-10-07] MEDS: CLOPIDOGREL 75 MG TAB PO SCH (20:28)
[2020-10-08] MEDS: IV SET AND CAP CHANGE INJ INJ SCH (03:55)
[2020-10-08 09:26] VITALS: TEMP 97.3
[2020-10-08] MEDS: amLODIPine BESYLATE 5 MG TAB PO SCH (10:01)
[2020-10-08] MEDS: ASPIRIN (CHEWABLE) 81 MG TAB PO SCH (10:01)
[2020-10-08] MEDS: ATORVASTATIN 20 MG TAB PO SCH (10:01)
[2020-10-08] MEDS: HEPARIN SODIUM (PORCINE) 5,000 U/ML VIAL SUBCU SCH (10:01)
[2020-10-08] MEDS: GABAPENTIN 300 MG CAP PO SCH (10:01)
[2020-10-08] MEDS: METOPROLOL TARTRATE 50 MG TAB PO SCH (10:01)
[2020-10-08] MEDS: ALLOPURINOL 300 MG TAB PO SCH (10:01)
[2020-10-08 12:34] VITALS: BP 120/66
[2020-10-08 14:09] VITALS: O2SAT 97
--- NOTE | 2020-10-27 13:53 | DS ---
SUPERVISING PHYSICIAN: Marcellus Stock MD DISCHARGE DIAGNOSES: 1. Acute on chronic renal failure. 2. Metabolic acidosis secondary to #1, improved. 3. Hyperkalemia, resolved. 4. Hypertension, controlled. 5. Coronary artery disease. 6. History of hepatitis C. 7. History of cerebrovascular accident in 2010. HISTORY OF PRESENT ILLNESS: This is a 70-year-old male patient who has a history of chronic renal issues but not currently on dialysis, he only has one kidney. He came to the ER today noting that his blood pressure was very low. He also had some lower extremity weakness that had progressively worsened over the previous several days. He does have a colostomy due to a bowel perforation during the sepsis event. He has been trying to get the colostomy reversed and has actually been cleared by Cardiology but due to extenuating circumstances he has not been able to get that reversed. He actually is followed by Dr. Higgins in [place] as well as Dr. Matthews. Previous creatinine was 1.9, his C02 was less than 7, potassium was 5.9. He was given insulin, dextrose and bicarb in the Emergency Room and started on sodium bicarb infusion per recommendations of Dr. Higgins. A CT of his abdomen was also completed and showed no evidence of any bowel obstruction. His vital signs were stable and he was admitted to the hospital. HOSPITAL COURSE: The patient was continued on the bicarb drip and Dr. Higgins was called for recommendation of rate. He increased his bicarb drip to 150 and his electrolytes were monitored closely. The following day his labs improved and he was feeling better. It was felt he needed another 24 hours of bicarbonate drip and maybe he could be discharged with close followup with him the following week. His vital signs improved, lab stabilized and he will be discharged today in stable condition. LABORATORY: His initial WBCs were 13,000 and are now 7,000. Hemoglobin and hematocrit are stable at 10.7 and 32.1. Sodium was 130 and is now 140. His potassium did drop to 3.5 and is now 4.1. Chloride is slightly low at 100, carbon dioxide was less than 7 and is now 29. BUN was as high as 80 and is now 39. Creatinine went up to 9.63 and is now 2.18. Magnesium did drop to 1.4 and required supplementation and is now 2.1. Urinalysis is unremarkable. Urine culture showed no growth. DISCHARGE PLAN: The patient will be discharged home in stable condition. He is to resume his previous diet and increase his activity as tolerated. Followup with Dr. Matthews in one to two weeks. He actually had had an appointment with Dr. Higgins at 9 AM on 10/18/20 for hospital followup. Return to Dr. Matthews's office, return to the hospital or call Dr. Higgins's office for any problems or complications. There are no new medications have have been ordered. DISCHARGE MEDICATIONS: 1. Amlodipine. 2. Aspirin. 3. Allopurinol. 4. Losartan. 5. Gabapentin. 6. Plavix. 7. Atorvastatin. 8. Triamcinolone cream. 9. Omeprazole. 10. Metoprolol tartrate. #[id number] [facility]
== END 2020-10-08 15:13 | disposition home or self-care (01) | DRG 683 ==
LOC: ER 17:42 → MS 20:58 → OBSVTOIN 20:58
PROVIDERS: ADMIT Nurse Practitioner Family; ATTEND Nurse Practitioner Acute Care
DX: N17.9 Acute kidney failure, unspecified (principal); E87.2 Acidosis; Q60.0 Renal agenesis, unilateral; I12.9 Hypertensive chronic kidney disease with stage 1 through stage 4 chronic kidney disease, or unspecified chronic kidney disease; E87.5 Hyperkalemia; I25.10 Atherosclerotic heart disease of native coronary artery without angina pectoris; E86.0 Dehydration; I71.4 Abdominal aortic aneurysm, without rupture; K46.9 Unspecified abdominal hernia without obstruction or gangrene; M10.9 Gout, unspecified; I72.3 Aneurysm of iliac artery; E78.00 Pure hypercholesterolemia, unspecified; N18.30 Chronic kidney disease, stage 3 unspecified; Z86.19 Personal history of other infectious and parasitic diseases; Z86.73 Personal history of transient ischemic attack (TIA), and cerebral infarction without residual deficits; Z93.2 Ileostomy status; Z95.5 Presence of coronary angioplasty implant and graft; Z90.49 Acquired absence of other specified parts of digestive tract; Z95.1 Presence of aortocoronary bypass graft; Z95.0 Presence of cardiac pacemaker; Z79.02 Long term (current) use of antithrombotics/antiplatelets; Z79.82 Long term (current) use of aspirin; Z84.1 Family history of disorders of kidney and ureter; Z87.891 Personal history of nicotine dependence

== ENCOUNTER 2020-10-20 16:43 | Inpatient (IN) | payer MEDICARE, OTHER ==
--- NOTE | 2020-10-20 17:05 | CT ---
CT HEAD WITHOUT IV CONTRAST HISTORY: Dizziness. COMPARISON: 10/12/2019 TECHNIQUE: CT scan of the brain was performed without IV contrast. This exam was performed according to our departmental dose-optimization program, which includes automated exposure control, adjustment of the mA and/or kV according to patient size and/or use of iterative reconstruction technique. FINDINGS: The ventricles, cisterns, and sulci are age-appropriate. No evidence of acute infarction, intracranial hemorrhage, extra-axial fluid collection, or midline shift. No air-fluid levels are seen in the paranasal sinuses to suggest acute sinusitis. No depressed skull fracture. IMPRESSION: No acute intracranial findings. Electronically signed by: Frantz Quan MD 10/20/2020 5:03 PM [employer]
--- NOTE | 2020-10-20 17:20 | HP ---
SUPERVISING PHYSICIAN: Elijah Matthews MD CHIEF COMPLAINT: Feeling poorly and some altered mental status. HISTORY OF PRESENT ILLNESS: This is a 70-year-old male patient who presented to his primary care physician, Dr. Dominik Matthews's office, due to altered mental status and just feeling poorly. He had actually been in the hospital approximately 2 weeks prior for acute kidney failure and hyperkalemia. He did miss his appointment with his video producer, Dr. Higgins, as he did not know that he had an appointment. He went to his primary care physician's office today and was found to have some altered mental status with a creatinine of 6.[address] Matthews called his video producer, Dr. Higgins in [place], and he recommended the patient be sent to the hospital and given some IV fluids and to monitor his electrolytes as well as his creatinine. Dr. Matthews sent the patient to the hospital for direct admit. His initial vital signs showed temperature 97.7, heart rate 69, blood pressure 124/71, respiratory rate 14, O2 saturation 97%. His lab at the clinic was sodium 137, potassium 6.1, chloride 111, CO2 9, BUN 89, creatinine 6.7. WBCs 9,800, hemoglobin 10.7, hematocrit 32.5. Urinalysis was basically within normal limits. His hepatic panel was unremarkable. He was admitted to the hospital in stable condition. I did call Dr. Higgins and he recommended the patient have routine blood work as well as to be gently hydrated with D5W with 1.5 amps of bicarb at 125 cc an hour over the next 1-1/2 days and to call for further recommendations tomorrow. PAST MEDICAL HISTORY: 1. Chronic tension headaches. 2. Hyperlipidemia. 3. Hypertension. 4. Chronic renal failure with one kidney. 5. Coronary artery disease. 6. Abdominal aortic aneurysm measuring 3.9 cm in December of 2018, followed by Dr. Matthews. 7. 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 Matthews. 8. Hepatitis C diagnosed in 2008. 9. Previous cerebrovascular accident. PAST SURGICAL HISTORY: 1. Cholecystectomy. 2. Sinus surgery. 3. Coronary artery bypass graft x4 vessels in 2008. 4. Coronary artery stent in 2001. 5. Bilateral hernia repairs. 6. Pacemaker implantation. 7. Colectomy with colostomy. HOME MEDICATIONS: Per the EMR and awaiting verification. ALLERGIES: NO KNOWN DRUG ALLERGIES. FAMILY HISTORY: Positive for kidney disease and Alzheimer's disease. SOCIAL HISTORY: The patient is a retired. He is . He lives in [place]. He has a history of smoking cigarettes for many years, but quit in 2007. He has no current history of ETOH or illicit drug use. REVIEW OF SYSTEMS: Negative except as per history of present illness. PHYSICAL EXAMINATION: VITAL SIGNS: Temperature 97.7, heart rate 59, blood pressure 124/71, respiratory rate 14, O2 saturation 97% on room air. GENERAL: This is a 70-year-old male patient lying in his hospital bed. He is in no acute distress. HEENT: Normocephalic, atraumatic. Pupils are equal and reactive. Oropharynx is clear. NECK: Supple with full range of motion. RESPIRATORY: Essentially clear to auscultation bilaterally. CARDIOVASCULAR: Regular rate and rhythm. GASTROINTESTINAL: Abdomen is soft, nondistended, nontender. Bowel sounds are positive. He does have colostomy with colostomy bag in place. NEUROLOGIC: Awake, alert and oriented times three. Cranial nerves II-XII are grossly intact as tested. SKIN: [place], warm and dry. LABORATORY: Labs and films are as per history of present illness. IMPRESSION: 1. Acute on chronic renal failure. 2. Hyperkalemia. 3. Hypertension. 4. Coronary artery disease with previous stent placement and coronary artery bypass graft. 5. History of abdominal aortic aneurysm as well as left common iliac aneurysm. 6. History of hepatitis C. 7. History of previous cerebrovascular accident. PLAN: The patient has been admitted to the hospital. His home medications will be resumed and I will repeat his lab for in the morning. Dr. Higgins, his video producer, has recommended that he be given D5W with 75 mEq of sodium bicarbonate at 125 for the next 36 hours and to call him with lab results in the morning. His home medications will be restarted as soon as they are verified. At this point, his mental status is baseline, but we will monitor that closely. He does have an appointment with Dr. Higgins on 11/03/20 at 9 AM. After discharge, he is to have Dr. Higgins's routine lab done the week prior when he sees Dr. Matthews and Dr. Matthews can touch base with Dr. Higgins at that time. We will monitor him closely and treat as needed. [facility][id number] [facility]
[2020-10-20] MEDS ORDERED: SODIUM CHLORIDE 0.9% (FLUSH) 10 ML SYG IV PRN (17:41)
[2020-10-20] MEDS ORDERED: ACETAMINOPHEN 325 MG TAB PO PRN (17:41)
[2020-10-20] MEDS ORDERED: ONDANSETRON INJ 4 MG/2 ML VIAL IV PRN (17:41)
[2020-10-20] MEDS ORDERED: SODIUM BICARBONATE VIAL 50 MEQ/50 ML VIAL ONE (17:54)
[2020-10-20] MEDS ORDERED: DEX 5% W/NACL 0.9% 1000ML 0 ML IVS ONE (17:54)
[2020-10-20] MEDS ORDERED: DEXTROSE 5% 1000ML 1,000 ML IVS ONE (17:57)
[2020-10-20] MEDS: SODIUM BICARBONATE SYRINGE 75 MEQ in DEXTROSE 5% 1000ML 1,000 ML IV PRN (18:04)
[2020-10-20] MEDS: IV SET AND CAP CHANGE INJ INJ SCH (18:04)
[2020-10-20] MEDS ORDERED: CLOPIDOGREL 75 MG TAB PO SCH (21:00)
[2020-10-20] MEDS ORDERED: CLOPIDOGREL 75 MG TAB ONE (21:27)
[2020-10-20] MEDS: HEPARIN SODIUM (PORCINE) 5,000 U/ML VIAL SUBCU SCH (21:27)
[2020-10-20] MEDS: ATORVASTATIN 20 MG TAB PO SCH (21:28)
[2020-10-20] MEDS: METOPROLOL TARTRATE 50 MG TAB PO SCH ×2 (21:28→21:45)
[2020-10-20] MEDS: GABAPENTIN 300 MG CAP PO SCH (21:28)
[2020-10-20] MEDS ORDERED: METOPROLOL TARTRATE 25 MG TAB PO ONE (21:45)
[2020-10-21] MEDS ORDERED: SODIUM BICARBONATE VIAL 50 MEQ/50 ML VIAL ONE ×2 (02:51→11:52)
[2020-10-21] MEDS ORDERED: DEXTROSE 5% 1000ML 1,000 ML IVS ONE ×2 (02:51→11:52)
[2020-10-21] MEDS: SODIUM BICARBONATE SYRINGE 75 MEQ in DEXTROSE 5% 1000ML 1,000 ML IV PRN ×2 (02:56→11:56)
[2020-10-21] MEDS ORDERED: amLODIPine BESYLATE 5 MG TAB ONE (07:17)
--- NOTE | 2020-10-21 07:45 | RAD ---
EXAM: Two view chest. INDICATION: Chest pain. COMPARISON: Chest x-ray: 10/04/2020. FINDINGS: Cardiac silhouette: Unremarkable. Aleida: Unremarkable. Lobar consolidation: None. Pleural effusion: None. Pneumothorax: None. Other: Left chest wall pacemaker/AICD. Median sternotomy wires. Bones: Unremarkable. Other: None. IMPRESSION: 1. No acute cardiopulmonary process. Electronically signed by: Cristian Evans MD 10/21/2020 7:44 AM [facility]
[2020-10-21] MEDS: GABAPENTIN 300 MG CAP PO SCH ×2 (08:41→20:22)
[2020-10-21] MEDS: CLOPIDOGREL 75 MG TAB PO SCH (08:41)
[2020-10-21] MEDS: ALLOPURINOL 100 MG TAB PO SCH (08:41)
[2020-10-21] MEDS: ASPIRIN (CHEWABLE) 81 MG TAB PO SCH (08:42)
[2020-10-21] MEDS: LOSARTAN POTASSIUM 100 MG TAB PO SCH (08:43)
[2020-10-21] MEDS: HEPARIN SODIUM (PORCINE) 5,000 U/ML VIAL SUBCU SCH ×2 (08:43→20:23)
[2020-10-21] MEDS: amLODIPine BESYLATE 5 MG TAB PO SCH (12:15)
[2020-10-21] MEDS: METOPROLOL TARTRATE 50 MG TAB PO SCH ×2 (12:15→21:23)
[2020-10-21] MEDS ORDERED: MAGNESIUM SULFATE PREMIX 2GM 2 GM in PREMIX BAG 1 BAG IVPB ONE (20:05)
[2020-10-21] MEDS ORDERED: MAGNESIUM SULFATE PREMIX 2GM 50 ML IVPB ONE (20:11)
[2020-10-21] MEDS: ATORVASTATIN 20 MG TAB PO SCH (20:23)
[2020-10-22] MEDS: HEPARIN SODIUM (PORCINE) 5,000 U/ML VIAL SUBCU SCH ×2 (08:15→20:30)
[2020-10-22] MEDS: ASPIRIN (CHEWABLE) 81 MG TAB PO SCH (08:16)
[2020-10-22] MEDS: GABAPENTIN 300 MG CAP PO SCH ×2 (08:16→20:30)
[2020-10-22] MEDS: LOSARTAN POTASSIUM 100 MG TAB PO SCH (08:17)
[2020-10-22] MEDS: ALLOPURINOL 100 MG TAB PO SCH (08:17)
[2020-10-22] MEDS: CLOPIDOGREL 75 MG TAB PO SCH (08:17)
[2020-10-22] MEDS ORDERED: SODIUM BICARBONATE VIAL 50 MEQ/50 ML VIAL ONE ×2 (08:39→16:54)
[2020-10-22] MEDS ORDERED: DEXTROSE 5% 1000ML 1,000 ML IVS ONE ×2 (08:39→16:54)
[2020-10-22] MEDS: SODIUM BICARBONATE SYRINGE 75 MEQ in DEXTROSE 5% 1000ML 1,000 ML IV PRN ×2 (08:56→16:59)
[2020-10-22] MEDS: METOPROLOL TARTRATE 50 MG TAB PO SCH ×3 (09:03→22:00)
[2020-10-22] MEDS: amLODIPine BESYLATE 5 MG TAB PO SCH (09:03)
[2020-10-22] MEDS: ATORVASTATIN 20 MG TAB PO SCH (20:31)
[2020-10-23] MEDS ORDERED: DEXTROSE 5% 1000ML 1,000 ML IVS ONE ×2 (01:34→16:20)
[2020-10-23] MEDS ORDERED: SODIUM BICARBONATE VIAL 50 MEQ/50 ML VIAL ONE ×2 (01:34→16:20)
[2020-10-23] MEDS: SODIUM BICARBONATE SYRINGE 75 MEQ in DEXTROSE 5% 1000ML 1,000 ML IV PRN ×2 (01:52→16:24)
[2020-10-23] MEDS: amLODIPine BESYLATE 5 MG TAB PO SCH (09:18)
[2020-10-23] MEDS: ASPIRIN (CHEWABLE) 81 MG TAB PO SCH (09:18)
[2020-10-23] MEDS: GABAPENTIN 300 MG CAP PO SCH ×2 (09:18→21:01)
[2020-10-23] MEDS: LOSARTAN POTASSIUM 100 MG TAB PO SCH (09:19)
[2020-10-23] MEDS: ALLOPURINOL 100 MG TAB PO SCH (09:19)
[2020-10-23] MEDS: METOPROLOL TARTRATE 50 MG TAB PO SCH ×2 (09:19→21:01)
[2020-10-23] MEDS: CLOPIDOGREL 75 MG TAB PO SCH (09:19)
[2020-10-23] MEDS: HEPARIN SODIUM (PORCINE) 5,000 U/ML VIAL SUBCU SCH ×2 (09:20→21:01)
--- NOTE | 2020-10-23 09:34 | PN ---
SUPERVISING PHYSICIAN: Lobito Matthews MD DATE: 10/21/20 SUBJECTIVE: The patient is lying in bed, he is feeling somewhat better. Denies any chest pain, nausea or vomiting. OBJECTIVE: VITAL SIGNS: Temperature 97.8, heart rate 64, blood pressure 101/64 respiratory 70, oxygen % on room air. RESPIRATORY: Essentially clear to auscultation bilaterally. CARDIAC: Regular rate and rhythm. NEUROLOGIC: Awake, alert, and oriented x3. LABORATORY: WBC 7,1200, hemoglobin 9, hemoglobin.28.1 sodium 131, potassium 5.1, carbon dioxide 12, BUN 90, creatinine 0.58, glucose 122, phosphorus 6.8, magnesium 1.5. Chest x-ray shows no acute cardiopulmonary process. All other labs and films have been reviewed via the EMR, IMPRESSION: 1. Acute on chronic renal failure. 2. Electrolyte imbalance, mainly hyperkalemia and hyperphosphatemia. 3. Hypertension. 4. Coronary artery disease with previous stent placement and coronary artery bypass graft. 5. History of abdominal aortic aneurysm as well as left common iliac aneurysm. 6. History of hepatitis C. 7. History of previous cerebrovascular accident. PLAN: We will continue present supportive care including his bicarb drip as recommended by Dr. Higgins. I will repeat his labs in the morning and will touch base with Dr. Higgins at that tome for further recommendations. We will continue to treat as needed. [facility][id number] [facility]
[2020-10-23] MEDS: IV SET AND CAP CHANGE INJ INJ SCH (18:39)
[2020-10-23] MEDS: ATORVASTATIN 20 MG TAB PO SCH (21:01)
[2020-10-24] MEDS: LOSARTAN POTASSIUM 100 MG TAB PO SCH (10:51)
[2020-10-24] MEDS: CLOPIDOGREL 75 MG TAB PO SCH (10:51)
[2020-10-24] MEDS: amLODIPine BESYLATE 5 MG TAB PO SCH (10:51)
[2020-10-24] MEDS: METOPROLOL TARTRATE 50 MG TAB PO SCH (10:52)
[2020-10-24] MEDS: GABAPENTIN 300 MG CAP PO SCH (10:52)
[2020-10-24] MEDS: ASPIRIN (CHEWABLE) 81 MG TAB PO SCH (10:52)
[2020-10-24] MEDS: HEPARIN SODIUM (PORCINE) 5,000 U/ML VIAL SUBCU SCH (10:52)
[2020-10-24] MEDS: ALLOPURINOL 100 MG TAB PO SCH (10:52)
--- NOTE | 2020-10-24 11:16 | PN ---
SUPERVISING PHYSICIAN: Lobito Matthews MD DATE: 10/23/2020 SUBJECTIVE: The patient is asleep. He awakens easily. He has no complaints at this time, in fact, he feels much better then admission. We discussed that he would have to be closely monitored with Dr. Matthews as well as Dr. Higgins. Hopefully, we can discharge him tomorrow if his electrolytes remain stabilized. OBJECTIVE: VITAL SIGNS: Temperature 98.5, heart rate 80, blood pressure 96/78 respiratory 18, oxygen saturation 97%. RESPIRATORY: Essentially clear to auscultation bilaterally. CARDIAC: Regular rate and rhythm. ABDOMEN: Nondistended, non-tender. He has a colostomy in place. NEUROLOGIC: Awake, alert, and oriented x3. LABORATORY: WBC 6,000, hemoglobin 9, hemoglobin 27.1. Electrolytes are basically within normal limits. Magnesium is slightly low at 1.6. All other labs and films have been reviewed via the EMR. IMPRESSION: 1. Acute on chronic renal failure. 2. Electrolyte imbalance, mainly hyperkalemia and hyperphosphatemia. 3. Hypertension. 4. Coronary artery disease with previous stent placement and coronary artery bypass graft. 5. History of abdominal aortic aneurysm as well as left common iliac aneurysm. 6. History of hepatitis C. 7. History of previous cerebrovascular accident. PLAN: We will continue present supportive care. I have discontinued his bicarb drip. We will repeat his labs in the morning. If they are stabilized he can be discharged with close followup with Dr. Matthews and Dr. Higgins. He has an appointment with Dr. Matthews on Sunday and will need routine lab work with that appointment and then he has an appointment with Dr. Higgins the following Sunday. His lab appointments are in his discharge summary and we will follow him and treat as needed. #[id number] [facility]
--- NOTE | 2020-10-24 11:21 | PN ---
SUPERVISING PHYSICIAN: Lobito Matthews M.D. DATE: 10/22/20 SUBJECTIVE: The patient is lying in bed. We discussed his plan of care. He got his son on the phone and we discussed his discharge planning, including his followup with Dr. Matthews and Dr. Higgins. He denies any chest pain, nausea or vomiting. OBJECTIVE: VITAL SIGNS: Temperature 97.8, heart rate 68, blood pressure 113/62, respiratory rate 15, O2 saturation 99% on room air. RESPIRATORY: Essentially clear to auscultation bilaterally. CARDIAC: Regular rate and rhythm. NEUROLOGIC: He is awake, alert and oriented times three. LABORATORY: WBCs are 5.1 with hemoglobin 9.1, hematocrit 27.3. Electrolytes show sodium 136, potassium 4.9, chloride 110, carbon dioxide 17, BUN 68, creatinine 2.9. Phosphorus is 4.7, magnesium 2. All other labs and films have been reviewed via the EMR. ASSESSMENT: 1. Acute on chronic renal failure. 2. Electrolyte imbalance, mainly hyperkalemia and hyperphosphatemia that has stabilized. 3. Hypertension. 4. Coronary artery disease with previous stent placement and coronary artery bypass graft. 5. History of abdominal aortic aneurysm as well as left common iliac aneurysm. 6. History of hepatitis C. 7. History of previous cerebrovascular accident. PLAN: We will continue present supportive care. Dr. Higgins has recommended that his bicarb drip be continued overnight and to repeat his labs in the morning. He would also like him to have a followup with Dr. Matthews the week prior to his appointment with his automation driver, and have repeat lab done. He most likely will need close followup, including routine labs to monitor the patient as most of his issues will not resolve until he has a reversal of his colostomy. I have ordered labs for in the morning. I have decreased his bicarb drip to 75 mL per hour. Will monitor and treat as needed. [facility][id number] [facility]
[2020-10-24] MEDS ORDERED: MAGNESIUM SULFATE PREMIX 2GM 2 GM in PREMIX BAG 1 BAG IVPB ONE (11:25)
[2020-10-24] MEDS ORDERED: MAGNESIUM SULFATE PREMIX 2GM 50 ML IVPB ONE (12:14)
[2020-10-24 15:06] VITALS: BP 110/70; TEMP 97.9; O2SAT 96
--- NOTE | 2020-10-25 09:12 | DS ---
SUPERVISING PHYSICIAN: Elijah Matthews MD ADMISSION DIAGNOSIS: 1. Acute on chronic renal failure. 2. Hyperkalemia. 3. Hypertension. 4. Coronary artery disease with previous stent placement and coronary artery bypass graft. 5. History of abdominal aortic aneurysm as well as left common iliac aneurysm. 6. History of hepatitis C. 7. History of previous cerebrovascular accident. DISCHARGE DIAGNOSIS: 1. Acute on chronic renal failure with creatinine at baseline levels. 2. Electrolyte imbalance, resolved with treatment to including hyperkalemia and hyperphosphatemia. 3. Hypertension, stable. 4. Coronary artery disease with previous stent placement and coronary artery bypass graft. 5. History of abdominal aortic aneurysm as well as left common iliac aneurysm. 6. History of hepatitis C. 7. History of previous cerebrovascular accident. REASON FOR HOSPITALIZATION: This is a 70-year-old male patient who presented to his primary care physician, Dr. Dominik Matthews's office, due to altered mental status and just feeling poorly. He had actually been in the hospital approximately 2 weeks prior for acute kidney failure and hyperkalemia. He did miss his appointment with his internal wholesaler, Dr. Higgins, as he did not know that he had an appointment. He went to his primary care physician's office today and was found to have some altered mental status with a creatinine of 6.[address] Matthews called his internal wholesaler, Dr. Higgins in [place], and he recommended the patient be sent to the hospital and given some IV fluids and to monitor his electrolytes as well as his creatinine. Dr. Matthews sent the patient to the hospital for direct admit. His initial vital signs showed temperature 97.7, heart rate 69, blood pressure 124/71, respiratory rate 14, O2 saturation 97%. His lab at the clinic was sodium 137, potassium 6.1, chloride 111, CO2 9, BUN 89, creatinine 6.7. WBCs 9,800, hemoglobin 10.7, hematocrit 32.5. Urinalysis was basically within normal limits. His hepatic panel was unremarkable. He was admitted to the hospital in stable condition. I did call Dr. Higgins and he recommended the patient have routine blood work as well as to be gently hydrated with D5W with 1.5 amps of bicarb at 125 cc an hour over the next 1-1/2 days and to call for further recommendations tomorrow. LABORATORY: White count on discharge 6,000, hemoglobin 9.3, hematocrit 28.2, platelet count 201,000. Differential was without a left shift. Chemistries showed normal electrolytes at discharge. Creatinine was down to 1.77 from admission of 4.58. Phosphorous 2.3, magnesium 1.5, but resolved to 2.0 prior to discharge. Liver functions all within normal limits. Urinalysis was unremarkable. RADIOLOGY: Chest x-ray per radiologic interpretation showed no acute cardiopulmonary process on single view chest. He also had a CT of the head with no acute intracranial findings. HOSPITAL COURSE: Mr. Souza was admitted for acute on chronic renal failure. Consultation was done with Dr. Higgins via telephone. Recommendations were to start him on a bicarb infusion, which he was on until 24 hours prior to discharge. Creatinine had stabilized. Vital signs were stable. He was clinically improved well enough to followup in an outpatient setting for further treatment. Discharge vital signs showed he was afebrile at 97.9, pulse 61, blood pressure 110/70, respirations 16, saturation 96% on room air. PLAN: Mr. Souza was discharged on 10/24/20. He has appointments to followup with Dr. Matthews in the coming week after discharge on 10/27/[address] Higgins on 11/03/20. He is to resume his usual diet, resume his usual activities and resume all medical treatment and medications prior to hospitalization. CONDITION ON DISCHARGE: Stable and improved. DISPOSITION: The patient is discharged home. [facility][id number] [facility]
== END 2020-10-24 15:13 | disposition home or self-care (01) | DRG 684 ==
LOC: CT 16:43 → OBSVTOIN 17:18 → MS 17:18
PROVIDERS: ADMIT Family Medicine; ATTEND Nurse Practitioner Family
DX: N17.9 Acute kidney failure, unspecified (principal); E78.5 Hyperlipidemia, unspecified; I72.3 Aneurysm of iliac artery; E83.39 Other disorders of phosphorus metabolism; I12.9 Hypertensive chronic kidney disease with stage 1 through stage 4 chronic kidney disease, or unspecified chronic kidney disease; N18.9 Chronic kidney disease, unspecified; I25.10 Atherosclerotic heart disease of native coronary artery without angina pectoris; I71.4 Abdominal aortic aneurysm, without rupture; E87.5 Hyperkalemia; Z86.73 Personal history of transient ischemic attack (TIA), and cerebral infarction without residual deficits; Z90.5 Acquired absence of kidney; Z86.19 Personal history of other infectious and parasitic diseases; Z90.49 Acquired absence of other specified parts of digestive tract; Z95.1 Presence of aortocoronary bypass graft; Z95.5 Presence of coronary angioplasty implant and graft; Z95.0 Presence of cardiac pacemaker; Z84.1 Family history of disorders of kidney and ureter; Z93.3 Colostomy status; Z87.891 Personal history of nicotine dependence

== ENCOUNTER → 2020-10-27 | Outpatient (CLI) | payer MEDICARE, OTHER | LOC: GMAE 17:28 | PROVIDERS: ATTEND Family Medicine | DX: N18.4 Chronic kidney disease, stage 4 (severe) (principal) ==

== ENCOUNTER 2020-11-04 15:15 | Inpatient (IN) | payer MEDICARE, OTHER ==
--- NOTE | 2020-11-04 15:29 | HP ---
SUPERVISING PHYSICIAN: Jasper Rios M.D. HISTORY OF PRESENT ILLNESS: This is a 70 year-old male patient who has been feeling poorly for the last week. He has a history of a colectomy with a colostomy that was done last year in October of 2018. Since that time his renal function has worsened. He has been in the hospital multiple times for elevated creatinine due to his inability to keep his fluid status up due to this colostomy. He was supposed to have had it reversed several months ago. He was actually cleared by his gospel worker. He was in the hospital for a creatinine of 6.7 about 2 weeks ago. He was given D5W with bicarb per recommendations by his construction services technician, Dr. Higgins. He followed-up with his construction services technician today and his creatinine had again gone up to over 7. Dr. Higgins requested Dr. Matthews to have the patient directly admitted to the hospital to receive fluids and to have port placement so he could get fluids with bicarb until arrangements could be made for his reversal of the colostomy. PAST MEDICAL HISTORY: 1. Chronic tension headaches. 2. Hyperlipidemia. 3. Hypertension. 4. Chronic renal failure with one kidney. 5. Coronary artery disease. 6. Abdominal aortic aneurysm followed by Dr. Matthews. 7. Left common iliac aneurysm followed by Dr. Matthews. 8. Hepatitis C diagnosed in 2008. 9. Previous cerebrovascular accident. 10. Abdominal surgery with colostomy secondary to septic rupture of colon while in the hospital for esophagus repair. They removed 2 feet of colon. PAST SURGICAL HISTORY: 1. Cholecystectomy. 2. Esophagus repair after rupture. 3. Coronary artery bypass graft x4 vessels. 4. Coronary artery stent in 2001. 5. Bilateral hernia repairs. 6. Pacemaker implantation. 7. Colectomy with colostomy. 8. Sinus surgery. HOME MEDICATIONS: Per the EMR and awaiting verification. ALLERGIES: NO KNOWN DRUG ALLERGIES. FAMILY HISTORY: Positive for kidney disease and Alzheimer's disease. SOCIAL HISTORY: He is a retired. He is . He lives in [place]. He quit cigarette smoking in 2007. He has no current history of ETOH or illicit drug use. REVIEW OF SYSTEMS: Negative except as per history of present illness. PHYSICAL EXAMINATION: VITAL SIGNS: Temperature 98.6, heart rate 66, blood pressure 93/56, respiratory rate 16, O2 saturation 100% on room air. GENERAL: This is a 70 year-old male patient lying in his hospital bed. He s in no acute distress. HEENT: Normocephalic, atraumatic. Pupils are equal and reactive. Oropharynx is clear. NECK: Supple without mass. RESPIRATORY: Essentially clear to auscultation bilaterally. CARDIAC: Regular rate and rhythm. GASTROINTESTINAL: Abdomen is soft, nondistended. Bowel sounds are positive. He has a colostomy with a colostomy bag in place. SKIN: [place], warm and dry. NEUROLOGIC: Awake, alert and oriented times three. Cranial nerves II-XII are grossly intact as tested. LABORATORY: Labs are pending per the EMR, but his creatinine at [facility] was greater than 7. ASSESSMENT: 1. Acute on chronic renal failure. Creatinine is greater than 7. 2. Fluid imbalance due to the patient's inability to regulate his fluid status exacerbated by colostomy. 3. Hypertension. 4. Hyperkalemia. 5. Coronary artery disease. 6. History of hepatitis C. PLAN: The patient has been admitted to the hospital. As soon as his labs are resulted I will follow and treat as needed. I have consulted Dr. Wyman for port placement so he can receive fluids as an outpatient. I will give him Dextrose with bicarb as recommended by Dr. Higgins tomorrow. After his labs have been completed I will touch base with him to seek further recommendations. Hopefully it can be corrected within the next 24 to 48 hours. Will monitor and treat as needed. #[id number] [facility]
[2020-11-04] MEDS ORDERED: SODIUM CHLORIDE 0.9% (FLUSH) 10 ML SYG IV PRN (15:32)
[2020-11-04] MEDS ORDERED: ONDANSETRON INJ 4 MG/2 ML VIAL IV PRN (15:38)
[2020-11-04] MEDS ORDERED: SODIUM BICARBONATE SYRINGE 75 MEQ in DEXTROSE 5% 1000ML 1,000 ML IV PRN (16:00)
[2020-11-04] MEDS ORDERED: IV SET AND CAP CHANGE INJ INJ SCH ×2 (16:00)
[2020-11-04] MEDS: SODIUM BICARBONATE VIAL 75 MEQ in DEXTROSE 5% 1000ML 1,000 ML IVS PRN (18:00)
--- NOTE | 2020-11-05 09:49 | CONS ---
DATE OF CONSULTATION: 11/05/20 HISTORY OF PRESENT ILLNESS: The patient is a 70-year-old male who was admitted for dehydration with elevation of his creatinine and decreased bicarb. This is secondary to an ostomy that has liquid stool, likely an ileostomy that he was given in the treatment of a perforated diverticulitis. The operating surgeon is quite hesitant to consider reanastomosis. I have been asked to obtain central venous access so the patient can undergo bicarb infusions as an outpatient by home health. PAST MEDICAL HISTORY: 1. Headaches. 2. Hyperlipidemia. 3. Hypertension. 4. Renal failure with one kidney. 5. Coronary artery disease. 6. Aortic aneurysm. 7. Left common iliac aneurysm. 8. Hepatitis C. 9. Status post cerebrovascular accident. PAST SURGICAL HISTORY: 1. Status post colectomy and colostomy. 2. Repair of an esophageal perforation. 3. Cholecystectomy. 4. Coronary artery bypass grafting. 5. Coronary artery stent. 6. Bilateral hernia repair. 7. Pacemaker. 8. Sinus surgery. MEDICATIONS: As listed in the record. ALLERGIES: NO KNOWN DRUG ALLERGIES. FAMILY HISTORY: Positive for kidney disease and Alzheimer's. SOCIAL HISTORY: He is retired. He is . He lives in [place]. He quit smoking in 2007. He does not use alcohol or street drugs. REVIEW OF SYSTEMS: Noncontributory except as in the history of present illness. PHYSICAL EXAMINATION: GENERAL: The patient is awake, alert, cooperative, in no acute distress. VITAL SIGNS: The patient is currently afebrile, normotensive. HEENT: Sclerae nonicteric. Mucous membranes moist. NECK: Without adenopathy. BACK: Without CVA tenderness. CHEST: Equal breath sounds bilaterally. There is no scarring of the right side of his chest. The clavicle was intact. HEART: Regular rhythm. ABDOMEN: Soft with well-healed scars with the ostomy, likely an ileostomy. RECTAL: Deferred. EXTREMITIES: Without cyanosis, clubbing or edema. LABORATORY: This morning, white count is 5,000, hemoglobin 9, platelet count 214, 56 neutrophils. Chemistries reveal carbon dioxide 13, creatinine 6.09, potassium 6.81, calcium 8.3. Liver functions within normal limits. IMPRESSION: 1. Chronic dehydration and loss of bicarb, likely secondary to his ileostomy with no likely surgery in the near future due to his renal status, etc. PLAN: The risks, benefits and alternatives to port placement were discussed with the patient. He understands this as his had a port for treatment of breast cancer and he wishes to proceed. This will be done as an outpatient next week. #[id number] [facility]
[2020-11-05] MEDS: SODIUM BICARBONATE VIAL 75 MEQ in DEXTROSE 5% 1000ML 1,000 ML IVS PRN ×3 (10:05→23:40)
[2020-11-05] MEDS ORDERED: SODIUM BICARBONATE 650 MG TAB ONE ×2 (13:33→13:53)
--- NOTE | 2020-11-05 14:07 | PN ---
SUPERVISING PHYSICIAN: Jasper Rios MD DATE: 11/05/20 SUBJECTIVE: The patient is lying in bed. He feels some better today. We discussed his plan of care and that Dr. Wyman would place that port next week. He was in agreement with the plan of care. OBJECTIVE: VITAL SIGNS: Temperature 97.3, heart rate 61, blood pressure 96/52, respiratory rate 18, oxygen saturation 97% on room air. . CHEST: Essentially clear to auscultation bilaterally. CARDIAC: Regular rate and rhythm. NEUROLOGIC: Awake, alert, and oriented x3. LABORATORY: WBCs 5,800, hemoglobin 9.4, hematocrit 29.3. Sodium 133, potassium 6.1, carbon dioxide 13, BUN 99, creatinine 6.09. Serum osmolality 298.1. All other labs and films have been reviewed via the EMR. ASSESSMENT: 1. Acute on chronic renal failure. Creatinine is greater than 7. 2. Fluid imbalance due to the patient's inability to regulate his fluid status exacerbated by colostomy. 3. Hypertension. 4. Hyperkalemia. 5. Coronary artery disease. 6. History of hepatitis C. PLAN: We will continue present supportive care. Dr. Wyman has seen the patient and he will place the port early next week. I held his Coumadin for now and put him on Heparin for DVT prophylaxis. I restarted his home medications. He will continue on the bicarb drip. I spoke with Dr. Higgins and he said to continue with the bicarb drip as ordered. Repeat his labs in the morning and we could call for further recommendations. He also recommended the patient be placed on sodium bicarb tablets, 4 tablets [address] Matthews and I also discussed his outpatient plan of care and he will come to the hospital on Mondays to get routine lab work and will get fluids every Sunday based off of his lab work and we if we have any issues, we can call Dr. Higgins for further recommendations. His Heparin will be stopped after his morning dose on Sunday in anticipation of his port placement on Sunday or Sunday. We will follow and treat as needed #[id number] MTDD
[2020-11-05] MEDS ORDERED: SODIUM BICARBONATE 650 MG TAB PO SCH ×2 (15:00)
[2020-11-05] MEDS: SODIUM BICARBONATE 650 MG TAB PO SCH ×2 (15:01→20:44)
[2020-11-05] MEDS: ATORVASTATIN 20 MG TAB PO SCH (20:44)
[2020-11-05] MEDS: HEPARIN SODIUM (PORCINE) 5,000 U/ML VIAL SUBCU SCH (20:44)
[2020-11-05] MEDS: GABAPENTIN 300 MG CAP PO SCH (20:44)
[2020-11-05] MEDS: METOPROLOL TARTRATE 50 MG TAB PO SCH (21:04)
[2020-11-06] MEDS: SODIUM BICARBONATE VIAL 75 MEQ in DEXTROSE 5% 1000ML 1,000 ML IVS PRN ×2 (07:49→17:42)
[2020-11-06] MEDS: METOPROLOL TARTRATE 50 MG TAB PO SCH ×2 (09:12→20:52)
[2020-11-06] MEDS: HEPARIN SODIUM (PORCINE) 5,000 U/ML VIAL SUBCU SCH ×2 (09:13→20:53)
[2020-11-06] MEDS: ALLOPURINOL 100 MG TAB PO SCH (09:15)
[2020-11-06] MEDS: GABAPENTIN 300 MG CAP PO SCH ×2 (09:15→20:53)
[2020-11-06] MEDS: CYANOCOBALAMIN 1,000 MCG TAB PO SCH (09:16)
[2020-11-06] MEDS: LOSARTAN POTASSIUM 100 MG TAB PO SCH (09:16)
[2020-11-06] MEDS: SODIUM BICARBONATE 650 MG TAB PO SCH ×3 (09:16→20:52)
[2020-11-06] MEDS: amLODIPine BESYLATE 5 MG TAB PO SCH (09:17)
[2020-11-06] MEDS ORDERED: MAGNESIUM SULFATE PREMIX 2GM 2 GM in PREMIX BAG 1 BAG IVPB ONE (10:07)
[2020-11-06] MEDS ORDERED: MAGNESIUM SULFATE PREMIX 2GM 50 ML IVPB ONE (10:22)
[2020-11-06] MEDS: ATORVASTATIN 20 MG TAB PO SCH (20:53)
--- NOTE | 2020-11-06 21:21 | PN ---
SUPERVISING PHYSICIAN: Jasper Rios M.D. DATE: 11/06/20 SUBJECTIVE: The patient seems to be doing well. He has no complaints. He has been tolerating oral bicarb. He remains on his bicarb infusion without any complications. No chest pains. No nausea or vomiting. OBJECTIVE: VITAL SIGNS: Remain stable. Temperature 97.8, pulse 68, blood pressure 105/55, respirations 18, satting 98% on room air. GENERAL: The patient looks to be resting comfortably in no acute distress. HEART: Regular rate and rhythm. ABDOMEN: Soft with ileostomy in place, non-tender. Positive bowel sounds. CHEST: Clear to auscultation bilaterally. NEUROLOGIC: He is alert and oriented times three. LABORATORY: White count 4,600, hemoglobin 8.8, hematocrit 27.0, platelet count 196,000. Differential shows to be without a left shift. Chemistries show sodium, potassium and chloride are normal. CO2 is up to 18, anion gap was normal. BUN 78, creatinine 3.8 as compared to 6.09 on admission. Blood sugar 120, calcium 8.5, magnesium is down to 1.5. RADIOLOGY: No additional radiographic studies. ASSESSMENT: 1. 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 2. Acute on chronic metabolic acidosis with normal anion gap due to bicarbonate loss showing good improvement with bicarbonate infusion. 3. Hypertension. 4. Hyperkalemia. 5. Coronary artery disease. 6. History of hepatitis C. PLAN: Will continue with current replacement of his bicarb with both oral and IV form. He is scheduled to have a port put in on Sunday so he can have outpatient bicarbonate infusions until he can get his ileostomy reversed. Will continue to follow his labs and keep him on oral bicarb as well. Again, he will get labs on Sunday as he is scheduled to have fluids every Sunday based off his lab work. I will talk to Dr. Higgins tomorrow in regards to further management as an outpatient. Until then will continue to monitor and treat as needed. [facility][id number] [facility]
[2020-11-07] MEDS: GABAPENTIN 300 MG CAP PO SCH (08:21)
[2020-11-07] MEDS: LOSARTAN POTASSIUM 100 MG TAB PO SCH (08:21)
[2020-11-07] MEDS: CYANOCOBALAMIN 1,000 MCG TAB PO SCH (08:22)
[2020-11-07] MEDS: HEPARIN SODIUM (PORCINE) 5,000 U/ML VIAL SUBCU SCH (08:23)
[2020-11-07] MEDS: METOPROLOL TARTRATE 50 MG TAB PO SCH (08:23)
[2020-11-07] MEDS: ALLOPURINOL 100 MG TAB PO SCH (08:23)
[2020-11-07] MEDS: amLODIPine BESYLATE 5 MG TAB PO SCH (08:23)
[2020-11-07] MEDS: SODIUM BICARBONATE 650 MG TAB PO SCH (09:19)
[2020-11-07 09:20] VITALS: O2SAT 96
[2020-11-07] MEDS ORDERED: MAGNESIUM SULFATE PREMIX 2GM 2 GM in PREMIX BAG 1 BAG IVPB ONE (09:22)
[2020-11-07] MEDS ORDERED: MAGNESIUM SULFATE PREMIX 2GM 50 ML IVPB ONE (10:27)
[2020-11-07] MEDS: SODIUM BICARBONATE VIAL 75 MEQ in DEXTROSE 5% 1000ML 1,000 ML IVS PRN (12:10)
[2020-11-07 12:55] VITALS: BP 118/52; TEMP 97.8
[2020-11-08] MEDS ORDERED: ceFAZolin SODIUM 1 GM VIAL ONE (07:30)
[2020-11-08] MEDS ORDERED: SODIUM CHL 0.9% 100ML MINI-BAG 100 ML IVPB ONE (07:30)
[2020-11-08] MEDS ORDERED: DEXTROSE 5% 1000ML 1,000 ML IVS ONE (07:36)
--- NOTE | 2020-11-08 10:39 | DS ---
SUPERVISING PHYSICIAN: Jasper Rios MD ADMISSION DIAGNOSIS: 1. Acute on chronic renal failure. Creatinine is greater than 7. 2. Fluid imbalance due to the patient's inability to regulate his fluid status exacerbated by colostomy. 3. Hypertension. 4. Hyperkalemia. 5. Coronary artery disease. 6. History of hepatitis C. DISCHARGE DIAGNOSIS: 1. 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 2. Acute on chronic metabolic acidosis with normal anion gap due to bicarbonate loss showing good improvement with bicarbonate infusion. 3. Hypertension. 4. Hyperkalemia. 5. Coronary artery disease. 6. History of hepatitis C. REASON FOR HOSPITALIZATION: This is a 70 year-old male patient who has been feeling poorly for the last week. He has a history of a colectomy with a colostomy that was done last year in October of 2018. Since that time his renal function has worsened. He has been in the hospital multiple times for elevated creatinine due to his inability to keep his fluid status up due to this colostomy. He was supposed to have had it reversed several months ago. He was actually cleared by his swamper. He was in the hospital for a creatinine of 6.7 about 2 weeks ago. He was given D5W with bicarb per recommendations by his reporting coordinator, Dr. Higgins. He followed-up with his reporting coordinator today and his creatinine had again gone up to over 7. Dr. Higgins requested Dr. Matthews to have the patient directly admitted to the hospital to receive fluids and to have port placement so he could get fluids with bicarb until arrangements could be made for his reversal of the colostomy. CONSULTATIONS: Dr. Wyman, please see his consultation note. LABORATORY: White count on discharge was 4,600, hemoglobin 8.8, hematocrit 27.0, platelet count 196,000. Differential was without a left shift. Creatinine on discharge was 2.28 compared to admission of 6.09. BUN was down to 55. All other electrolytes were within normal limits. Magnesium a little low at 1.7, but he did get IV magnesium replacement. Calcium 8.6. RADIOLOGY: No studies obtained while in the hospital. HOSPITAL COURSE: Mr. Souza was admitted and started on bicarb infusion. He responded well to treatment. Arrangements were made to place an infusion port by Dr. Wyman as an outpatient on Sunday. He was given instructions to hold his warfarin until after the procedure on Sunday. He has instructions to have labs drawn on Sunday with the plan to coordinate between Dr. Matthews and Dr. Higgins in regards to replacement of his bicarb as a result of ileostomy weekly as needed with repeat labs and if needed by oral bicarb. He was stable and improved. On discharge, vital signs were stable with temperature 97.8, pulse 60, blood pressure 118/52, respirations 18, saturation 96% on room air. PLAN: Mr. Souza is discharged on 11/07/20. He is to followup with Dr. Matthews and Dr. Higgins as well as scheduled for port placement with Dr. Wyman on 11/08/20. He is to follow Dr. Wyman's preoperative instructions. He has a slip to have a BMP done either postoperatively or preoperatively with results to be sent to Dr. Matthews or Dr. Higgins for arrangements of sodium bicarbonate replacement as needed. He was given a script for oral sodium bicarb to take 2600 mg daily in the form of sodium bicarb tablets to total 2600 mg daily, divided over 3 times a day, or if not able to take outpatient infusions, those were 650 mg tablets. He was given a script for #360 tablets. He was instructed not to fill those until he had instructions from Dr. Higgins. He is to resume his usual diet. CONDITION ON DISCHARGE: Stable and improved. DISPOSITION: The patient is discharged home. #[id number] MTDD
== END 2020-11-07 12:30 | disposition home or self-care (01) | DRG 684 ==
LOC: MS 15:15
PROVIDERS: ADMIT Nurse Practitioner Acute Care; ATTEND Nurse Practitioner Family
DX: N17.9 Acute kidney failure, unspecified (principal); N18.9 Chronic kidney disease, unspecified; I12.9 Hypertensive chronic kidney disease with stage 1 through stage 4 chronic kidney disease, or unspecified chronic kidney disease; I25.10 Atherosclerotic heart disease of native coronary artery without angina pectoris; E87.5 Hyperkalemia; Z90.49 Acquired absence of other specified parts of digestive tract; Z93.2 Ileostomy status; I71.4 Abdominal aortic aneurysm, without rupture; B19.20 Unspecified viral hepatitis C without hepatic coma; Z86.73 Personal history of transient ischemic attack (TIA), and cerebral infarction without residual deficits; Z95.1 Presence of aortocoronary bypass graft; Z95.0 Presence of cardiac pacemaker; Z87.891 Personal history of nicotine dependence

== ENCOUNTER 2020-11-08 09:32 | Day surgery (SDC) | payer MEDICARE, OTHER ==
[2020-11-08] MEDS ORDERED: PROPOFOL 200 MG/20 ML VIAL IV ONE (09:33)
[2020-11-08] MEDS ORDERED: LACTATED RINGERS 1,000 ML IVS ONE (09:45)
[2020-11-08] MEDS ORDERED: MIDAZOLAM INJ 2 MG/2 ML VIAL ONE (10:43)
[2020-11-08] MEDS ORDERED: fentaNYL CITRATE INJ 50 MCG/ML 2 ML AMP ONE (10:43)
[2020-11-08] MEDS ORDERED: SODIUM CHLORIDE 0.9% 50 ML VIAL ONE (10:46)
[2020-11-08] MEDS ORDERED: SODIUM BICARBONATE VIAL 50 MEQ/50 ML VIAL ONE (10:46)
[2020-11-08] MEDS ORDERED: LIDOCAINE 1% 50 ML VIAL INJ ONE (10:46)
[2020-11-08] MEDS ORDERED: HEPARIN SODIUM 100 U/ML 5 ML SYG IV ONE (10:47)
[2020-11-08] MEDS ORDERED: SODIUM CHLORIDE 0.9% 1000ML 1,000 ML ONE (10:59)
--- NOTE | 2020-11-08 12:26 | RAD ---
EXAM DESCRIPTION: Chest,1 View CLINICAL HISTORY: 70 years Male, post port placement right side COMPARISON: Previous chest x-ray October 21, 2020 TECHNIQUE: AP portable chest. FINDINGS: Heart size is prominent with normal pulmonary vascularity. Port-A-Cath on the right with tip in the region of the confluence of the innominate veins and upper superior vena cava. Cardiac pacer defibrillator is in place. Blunting of left costophrenic angle consistent with chronic pleural scarring more likely than effusion. Similar appearance on previous study. No consolidating infiltrate. No pulmonary mass or worrisome nodule. No pneumothorax or pleural effusion. Bones are unremarkable. IMPRESSION: No acute process is identified in the chest. Electronically signed by: Carlos Mcdowell MD 11/08/2020 12:25 PM [employer]ORMAN
[2020-11-08 13:03] VITALS: BP 119/58; TEMP 97.7; O2SAT 95
--- NOTE | 2020-11-08 13:40 | OP ---
DATE OF PROCEDURE: 11/08/20 PREOPERATIVE DIAGNOSIS: 1. Intermittent dehydration secondary to ileostomy. POSTOPERATIVE DIAGNOSIS: 1. Intermittent dehydration secondary to ileostomy. PROCEDURE: 1. Insertion of right subclavian venous access port using fluoroscopy. SURGEON: Zain Wyman MD. BUSINESS SOLUTIONS CONSULTANT: None. ANESTHESIA: IV sedation by Anesthesia and local infiltration of 1% lidocaine. INDICATION: The patient is a 70-year-old male who in the past two years had a perforated distal esophagus. While that was being treated, he ended up with a perforated probably diverticulitis of the colon and underwent a resection with ileostomy. It has not been reversed. He continually becomes dehydrated with decreased bicarb and with elevation of his creatinine requiring rehydration, which has required hospitalization. After the risks, benefits and alternatives to a port had been discussed, he was brought to the Surgical Suite today for port placement for outpatient rehydration by home health. PROCEDURE: The patient was brought to the Surgical Suite and placed in supine position. He was prepped and draped in the usual sterile manner and given 1 gram of Ancef. A surgical time-out was taken. The infraclavicular area was infiltrated with local anesthesia using 1% lidocaine. The needle was then introduced under the clavicle and advanced until venous blood was obtained and easily aspirated. The 18-gauge thin wall needle was then introduced in the same manner. Blood was aspirated. The guidewire was introduced and the needle was removed. When this was done, a towel was placed over the field and fluoroscopy was used to identify the guidewire in the superior vena cava. At this point, the port pocket was formed with local infiltration of anesthesia, the sharp knife and electrocautery after the defibrillator was covered with the magnet. When the pocket was formed, the port was introduced into the pocket and the catheter was introduced through the subcutaneous tissue to the insertion site where a small incision had been made over the guidewire. The port was then sutured in place with two 4-0 Prolene simple sutures. When this was done, the catheter was cut to appropriate length. The dilator introducer was introduced over the guidewire. The guidewire and dilator were removed. The catheter was then introduced through the introducer. The introducer was then removed in the usual manner. Pressure was held. A towel was placed over the field and, again, fluoroscopy was identify the catheter in good position, which it is. At this point, the port pocket site was closed, first with interrupted 3-0 Vicryl sutures in the subcutaneous tissue and the subcuticular incisions were closed with 4-0 Vicryl subcuticular sutures, benzoin and Steri-Strips. Sterile pressure dressings were applied. The patient was awakened and taken to the Ambulatory Unit in stable condition. A stat portable chest x-ray was ordered. The patient tolerated the procedure well. Estimated blood loss was less than 10 mL. All sponge, needle and instrument counts were correct. #[id number] [facility]
== END 2020-11-08 13:00 | disposition home or self-care (01) ==
LOC: AMB 09:32
PROVIDERS: ATTEND Surgery
DX: E86.0 Dehydration (principal); Z93.2 Ileostomy status; I25.10 Atherosclerotic heart disease of native coronary artery without angina pectoris; I12.9 Hypertensive chronic kidney disease with stage 1 through stage 4 chronic kidney disease, or unspecified chronic kidney disease; N18.9 Chronic kidney disease, unspecified; B19.20 Unspecified viral hepatitis C without hepatic coma; Z95.0 Presence of cardiac pacemaker; Z95.5 Presence of coronary angioplasty implant and graft; Z95.1 Presence of aortocoronary bypass graft; Z79.01 Long term (current) use of anticoagulants; Z79.899 Other long term (current) drug therapy; Z86.73 Personal history of transient ischemic attack (TIA), and cerebral infarction without residual deficits; Z87.891 Personal history of nicotine dependence
CPT/HCPCS: 00532; 36415; 36561; 71045; 76000; 80048; 85025; A4216; C1788; J1642; J2250; J3010; J3490; J7030; J7120

== ENCOUNTER → 2020-11-11 | Outpatient (CLI) | payer MEDICARE, OTHER | LOC: GMAE 14:25 | PROVIDERS: ATTEND Family Medicine | DX: N18.4 Chronic kidney disease, stage 4 (severe) (principal) ==